=== PATIENT | male | born 1930 | race Caucasian/White ===

== ENCOUNTER → 2017-06-01 | Day surgery (SDC) | payer OTHER ==
[2017-05-19 11:46] VITALS: BMI 24.0
[~2017-06-01] VITALS: Ht 172.7 cm; Wt 72.7 kg
[~2017-06-01] MED LIST: AMLO-110 PO; ASPI81TA28 PO; ATOR-26 PO; ATROPINE SULFATE 0.1 MG/ML 5ML SYR IV PRN; BUPIVACAINE 0.5 % 5 MG/1 ML MPF 30ML VIAL ONE; CEFAZOLIN 2000 MG/60 ML D5W IV SCH; CYAN10005 PO; DEXAMETHASONE SOD INJ 4 MG/ML VIAL ONE; EpHEDrine SULFATE 50MG/5ML SYR ONE; EpHEDrine SULFATE INJ 50 MG/ML AMP IV PRN; FENTANYL CITRATE INJ 50 MCG/1 ML 2 ML VIAL IV PRN; FENTANYL CITRATE INJ 50 MCG/1 ML 2 ML VIAL ONE; GABA-113 PO; HYDROmorphone INJ 1 MG/ML SYR IV PRN; LABETALOL HCL IV 5 MG/ML 20ML IV PRN; LACTATED RINGER'S 1000ML 1,000 ML IV SCH; LIDOCAINE HCL 1% 20 ML VIAL ONE; LIDOCAINE HCL 2% 2 ML VIAL (20MG/ML) ONE; LISI-461 PO; MEPERIDINE HCL 25 MG/ML CARP IV PRN; METO25TA56 PO; MoRPHine SULFATE 4 MG/ML 1 ML CARP\\VIAL IV PRN; NTRGSL/4 UT; OMEG10007 PO; ONDANSETRON INJ 2 MG/ML 2 ML VIAL IV PRN; ONDANSETRON INJ 2 MG/ML 2 ML VIAL ONE; OXYCODONE/ACETAMINOPHEN 5-325 TAB PO PRN; PROPOFOL IV EMULSION 10 MG/ML 20 ML VIAL IV ONE; SODIUM CHLORIDE 0.9% 1000ML 1,000 ML IV SCH; ZNTT/150 PO
[2017-06-01 05:39] VITALS: PULSE 55; TEMP 36.4; O2SAT 98; Ht 172.7 cm; Wt 72.7 kg
--- NOTE | 2017-06-01 07:00 | History & Physical Bridge Note ---
H&P Re-Evaluation Bridge Note: I have examined the patient, reviewed the History & Physical and in the interval since the performance of the History & Physical I have noted the following changes of clinical significance: No changes noted
--- NOTE | 2017-06-01 08:44 | [facility] Post Operative Brief Note ---
Immediate Operative Summary Operative Date Jun 01, 2017. Pre-Operative Diagnosis Recurrent inguinal hernia Post-Operative Diagnosis Recurrent inguinal hernia Procedure(s) Performed Repair of Recurrent Left Inguinal Hernia Surgeon Dr Drake Hull Inspector Surgeon(s) Peggy Rodriguez PA-C Estimated Blood Loss 10cc Findings See dictation Specimens A: Hernia sack Drains None Anesthesia General Complication(s) None Disposition Recovery Room / PACU
--- NOTE | 2017-06-01 08:48 | Discharge Instructions ---
Discharge Instructions Date of Service Jun 01, 2017. Admission Reason for Admission: Left Inguinal Hernia Discharge Discharge Diagnosis / Problem: Rewcurent left inguinal hernia Discharge Goals Goal(s): Decrease discomfort Activity Recommendations Activity Limitations: per Instructions/Follow-up section Lifting Limitations: no more than 10 pounds (for 6 weeks) Shower/Bathe: tomorrow (Shower only) . Instructions / Follow-Up Instructions / Follow-Up ACTIVITY RECOMMENDATIONS: * Walk as much as possible. * No heavy lifting (>10 lbs.) for 2 weeks. SPECIAL CARE INSTRUCTIONS: * Ice to hernia repair site on and off until bedtime tonight. * May shower in 24 hours. Let water run over area and pat dry. * Leave steri strips on for one week. * Call the surgeon's office with any questions or concerns - (ex. temperature higher than 101 degrees F, excessive bleeding or pain). MEDICATIONS: Resume previous medications unless instructed otherwise by your surgeon. * Ibuprofen 600 mg every 6 hours with food * Percocet 1 every 4 hours, as needed for pain FOLLOW UP VISIT: If not already scheduled, please call the office to schedule a two week follow- up appointment. Office number Current Hospital Diet Patient's current hospital diet: Discharge Diet Recommended Diet: Regular Diet Procedures Procedures Performed: Repair of Recurrent Left Inguinal Hernia Pending Studies Studies pending at discharge: no Medical Emergencies . Who to Call and When: Medical Emergencies: If at any time you feel your situation is an emergency, please call 911 immediately. . Non-Emergent Contact Non-Emergency issues call your: Primary Care Provider, Surgeon Call Non-Emergent contact if: your pain is unusual for you, wound has increased redness, wound has increased pain . "Provider Documentation" section prepared by Keyshawn East. . VTE Core Measure Inpt VTE Proph given/why not?: Treatment not indicated
[2017-06-01 09:43] VITALS: BP 125/60; PULSE 72; TEMP 36.5; O2SAT 92
--- NOTE | 2017-06-01 09:52 | Anesthesiology Progress Note ---
Anesthesia Post Op Note Date & Time Jun 01, 2017 at 09:51 Vital Signs Pain Intensity: 0 Vital Signs Past 12 Hours Date Time Temp Pulse Resp B/P (MAP) Pulse Ox O2 Delivery O2 Flow Rate FiO2 06/01/17 09:36 36.1 06/01/17 08:55 36.0 16 120/57 98 Mask 10 06/01/17 05:39 36.4 55 18 98 Room Air Notes Mental Status: alert / awake / arousable, participated in evaluation Pt Amnestic to Procedure: Yes Nausea / Vomiting: adequately controlled Pain: adequately controlled Airway Patency, RR, SpO2: stable & adequate BP & HR: stable & adequate Hydration State: stable & adequate Anesthetic Complications: no major complications apparent
--- NOTE | 2017-06-01 09:59 | OPERATIVE REPORT ---
DATE OF OPERATION: 06/01/2017 PREOPERATIVE DIAGNOSIS: Recurrent left inguinal hernia. POSTOPERATIVE DIAGNOSIS: Recurrent direct and indirect left inguinal hernia. PROCEDURE: Repair of recurrent direct and indirect left inguinal hernia. SURGEON: Dr. Keyshawn East. INTERNET ASSESSOR: Peggy Rodriguez PA-C. FINDINGS: The patient had a moderate sized indirect inguinal hernia. There was also a small direct hernia sac, but the entire floor of the canal was weakened by that defect. The cord structures were normal. The previously placed mesh was located superolateral to the internal ring. There was a lot of scarring of the external oblique to the internal oblique over the area where the mesh was located. TECHNIQUE: The patient was given a general anesthetic and the area was prepped and draped in the usual sterile fashion. An incision was made through the scar from his previous hernia repair and carried down through the subcutaneous tissue. The external oblique was identified. The external ring was identified. The generous tissue of the cord structures was identified. I was able to insert my finger through the external ring and opened the external ring working superolaterally up beyond the internal ring. The cord structures were isolated away from the floor of the canal and the cremaster fibers were opened and the indirect sac was identified. The indirect sac was away from the cord structures to inside the internal ring. The sac was opened. There were no incarcerated contents. The sac was removed and the peritoneal opening was closed with a running 2-0 Vicryl. That then was placed back into its anatomic position just inside the internal ring. There was a small lipoma of the cord that was also removed. At that point, the direct sac was identified. It was away from the floor of the canal and hinojosa of the canal, placed back into its anatomic position and the floor of the canal was oversewn reapproximating the transversalis using a running 0 PDS. A preformed inguinal hernia mesh was then placed in the floor of the canal and in order to do so, I had to separate the external oblique fascia away from the internal oblique and I left the previously placed mesh in place, dissecting the internal and external oblique off its anterior surface and pushing it posteriorly. That allowed me to place the mesh behind the external oblique fascia. It was cut to size and sewn to the anterior surface of the internal oblique medially shelving border of the inguinal ligament laterally, tissue over the pubic bone inferiorly. The legs of the mesh were approximated to each other to create a new internal ring and all the mesh suturing was done with 0 PDS. The external oblique was then closed after placing the cord structures back into their anatomic position. That was closed with a running 2-0 Vicryl. The deep subcutaneous tissue was closed with running 2-0 Vicryl. The superficial subcutaneous tissue was closed with running 3-0 Vicryl. The skin was closed with 4-0 Monocryl in a running subcuticular fashion. The skin was anesthetized with 0.5% Marcaine. The skin was cleansed, dried, and benzoin placed. Steri-Strips applied. The estimated blood loss was 10 mL. Sponge, needle and instrument counts were correct prior to closure. The patient tolerated the surgical procedure without complication and was transferred to recovery. I attest to the content of the Intraoperative Record and any orders documented therein. Any exception s are noted below.
[2017-06-01 10:15] VITALS: BP 122/56; PULSE 72; TEMP 36.6; O2SAT 93
[2017-06-01 10:45] VITALS: BP 150/72; PULSE 83; TEMP 36.7; O2SAT 95
== END | disposition home or self-care (01) ==
LOC: C.ACU 05:11
PROVIDERS: ATTEND Surgery
DX: K40.91 Unilateral inguinal hernia, without obstruction or gangrene, recurrent (principal); I25.10 Atherosclerotic heart disease of native coronary artery without angina pectoris; E78.5 Hyperlipidemia, unspecified; M19.90 Unspecified osteoarthritis, unspecified site; Z86.010 Personal history of colon polyps; I10 Essential (primary) hypertension; N18.3 Chronic kidney disease, stage 3 (moderate); Z95.5 Presence of coronary angioplasty implant and graft; Z79.82 Long term (current) use of aspirin; E78.00 Pure hypercholesterolemia, unspecified; G47.33 Obstructive sleep apnea (adult) (pediatric); K21.9 Gastro-esophageal reflux disease without esophagitis

== ENCOUNTER 2019-08-29 17:01 | Inpatient (IN) ==
[2019-08-29] MEDS ORDERED: ONDANSETRON INJ 2 MG/ML 2 ML VIAL IV STA (18:08)
[2019-08-29] MEDS: SODIUM CHLORIDE 0.9% 1000ML 1,000 ML IV SCH ×2 (18:24→22:36)
[2019-08-29] MEDS ORDERED: ASPIRIN CHEW 324 MG PO STA (18:50)
[2019-08-29 18:59] LABS: Alanine Aminotransferase 34 U/L (12-78); Albumin Level 3.7 gm/dl (3.4-5.0); Blood Urea Nitrogen 28 mg/dl (7-18); Calcium 8.6 mg/dl (8.5-10.1); Carbon Dioxide 22 mmol/L (21-32); Chloride 109 mmol/L (98-107); Est GFR (Non-African American) 29.3; Glucose 134 mg/dl (70-99); Magnesium 1.9 mg/dl (1.8-2.4); Potassium 4.3 mmol/L (3.5-5.1); Sodium 138 mmol/L (136-145)
[2019-08-29 19:05] LABS: Basophils # (auto) 0.01 K/uL (0-0.2); Basophils % (auto) 0.4 %; Hematocrit (blood only) 36.7 % (42-52); Hemoglobin 12.4 g/dL (14.0-18.0); Immature Granulocytes # (auto) 0.01 K/uL (0.00-0.02); Immature Granulocytes % (auto) 0.4 %; Lymphocytes # (auto) 0.33 K/uL (1.2-3.4); Lymphocytes % (auto) 11.9 %; Mean Corpuscular Hemoglobin 34.3 pg (25-34); Mean Corpuscular Hgb Conc 33.8 g/dL (32-36); Mean Corpuscular Volume 101.4 fL (80-100); Mean Platelet Volume 9.5 fL (7.4-10.4); Monocytes # (auto) 0.15 K/uL (0.11-0.59); Monocytes % (auto) 5.4 %; Neutrophils # (auto) 2.27 K/uL (1.4-6.5); Neutrophils % (auto) 81.9 %; Platelet Count 141 K/uL (130-400); RDW Coefficient of Variation 13.3 % (11.5-14.5); RDW Standard Deviation 50.2 fL (36.4-46.3); Red Blood Count 3.62 M/uL (4.7-6.1); White Blood Count 2.77 K/uL (4.8-10.8)
[2019-08-29 19:13] LABS: Albumin Globulin Ratio 1.1 (0.9-2); Alkaline Phosphatase 103 U/L (45-117); Aspartate Aminotransferase 39 U/L (15-37); Bilirubin,Total 1.4 mg/dl (0.2-1); Globulin 3.4 gm/dl (2.5-4.0); Thyroid Stimulating Hormone 0.374 uIu/ml (0.300-4.500); Total Protein 7.1 gm/dl (6.4-8.2); Troponin I 0.228 ng/ml (0-0.045)
[2019-08-29] MEDS ORDERED: HEPARIN SODIUM/DEXTROSE 25,000 UNITS/500 ML BAG IV SCH (19:30)
[2019-08-29 19:46] LABS: INR 1.1 (0.9-1.1); Prothrombin Time 11.5 Seconds (9.0-12.0)
[2019-08-29] MEDS ORDERED: HEPARIN SOD 5,000 UNIT/0.5 ML VIAL ONE (19:50)
--- NOTE | 2019-08-29 19:57 | XRay Report ---
SINGLE VIEW CHEST CLINICAL HISTORY: Generalized weakness. FINDINGS: 2 AP, portable, upright chest radiographs are obtained. No prior studies are available for comparison at the time of dictation. The examination is degraded by portable technique and patient ro tation. The heart is enlarged noting atherosclerotic calcification of the thoracic aorta. The pulmon nils vasculature is noncongested. Emphysematous changes suspected. There is bibasilar scarring/atelect asis. No airspace consolidation or large pleural effusion is identified. Apical scarring is observed. No pneumothorax is seen. The skeletal structures are osteopenic. There are healed right-sided rib fr actures. IMPRESSION: Cardiomegaly and suspect emphysema with no acute cardiopulmonary abnormality identified. Electronically signed by: Lazarus Flaherty M.D. 08/29/2019 7:56 PM
[2019-08-29 20:24] LABS: Partial Thromboplastin Ratio 0.9; Partial Thromboplastin Time 25.6 Seconds (21.0-31.0)
--- NOTE | 2019-08-29 20:42 | History & Physical Report ---
Date of Service August 29, 2019 Assessment & Plan (1) Chest pain: (2) Elevated troponin: This is an 89-year-old male with a PMH of CAD ( s/p stent in 2007), dyslipidemia, hypertension, chronic dysphagia with Schatzki's ring, CKD III/IV and other medical problems listed below who presents with progressive shortness of breath and generalized weakness x2 days. -Progressive SOB x 2 days, Left hand numbness x 2 weeks -H/o CAD with stent to LAD in 2007, presented with left arm numbness -EKG was sinus rhythm with PACs, LVH and T wave inversions in leads I and V3-V6. Initial troponin of 0.228. -Was given aspirin 324 mg and started on IV heparin by ED physician. Continue for now -Monitor on telemetry, trend troponin, 2D echo, repeat EKG in AM (3) Bilateral lower extremity edema: BLE with 2+ edema. 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 Follows with [facility] -Chronic dysphagia, difficulty eating poultry, needs food in small bites -Aspiration precautions (7) HTN (hypertension): Mildly elevated at 141/65 -Continue home amlodipine, lisinopril (8) Inguinal nodule: Chronic pain in left inguinal region following inguinal hernia surgery with revision -Following with general surgery. June 2019 MRI pelvis wo contrast with focal thickening and edema of the anterior abdominal wall in the left inguinal region. This does not have the appearance of a muscle strain or recurrent hernia and is likely postoperative in nature -Consider cardiac clearance prior to any type of surgical intervention (9) HLD (hyperlipidemia): Continue statin (10) B12 deficiency: Continue cyanocobalamin DVT Ppx: IV heparin Code status: FULL per discussion with patient PCP: Mik Dispo: Admitted to PCU. Discharge planning ordered. Patient seen in collaboration with Dr. Shaffer. Please see addendum. History of Present Illness Chief Complaint: Shortness of breath, generalized weakness Primary Care Provider: NO PCP This is an 89-year-old male with a PMH of CAD ( s/p stent in 2007), dyslipidemia, hypertension, chronic dysphagia with Schatzki's ring, CKD III/IV and other medical problems listed below who presents with progressive shortness of breath and generalized weakness x2 days. Patient has felt short of breath for the past few weeks but it is progressed the past few days to where he feels short of breath even at rest. Family notes they can hear him breathing heavily even when sitting in his chair. Also has had decreased appetite and p.o. intake. States that the only food he is really had in the past few days a cereal and Mountain Dew. Had difficulty getting out of his chair today, which prompted family bring him to ED for further evaluation. Denies any recent falls. Currently, patient feels fatigued, short of breath and generally weak. Denies any lightheadedness, visual changes, chest pain or palpitations. No fever, chills, cough or wheezing. Notes that first 3 fingers on left hand have been numb for the past 2 weeks. Has history of CAD with stent to LAD in 2007. During that catheterization, was also noted to have mild nonobstructive disease to proximal left main, PDA, proximal left circumflex and ostial LAD. 2D echo from Dec 2016 with normal left ventricular cavity size, no left ventricular wall motion abnormality, preserved EF of 57% and mildly sclerotic mitral valve leaflets with mild mitral regurg present. In the ED, patient found to be afebrile and hemodynamically stable. Chest x-ray with cardiomegaly and suspected emphysema with no acute cardiopulmonary abnormalities identified. EKG was sinus rhythm with PACs, LVH and T wave inversions in leads I and V3-V6. Initial troponin of 0.228. Was given aspirin 324 mg and started on IV heparin by ED physician. Allergies Allergy/AdvReac Type Severity Reaction Status Date / Time No Known Allergies Allergy Verified 08/29/19 17:57 Home Medications Home Medications Medication Instructions Recorded Confirmed Type amlodipine 2.5 mg PO DAILY 08/29/19 08/29/19 History aspirin [Aspir-81] 81 mg PO DAILY 08/29/19 08/29/19 History atorvastatin 80 mg PO HS 08/29/19 08/29/19 History cyanocobalamin (vitamin B-12) 1,000 mcg PO DAILY 08/29/19 08/29/19 History [Vitamin B-12] gabapentin 300 mg PO HS 08/29/19 08/29/19 History lisinopril 10 mg PO DAILY 08/29/19 08/29/19 History omega 9-dhc-rlg-fish oil [Fish Oil] 1,000 cap PO DAILY 08/29/19 08/29/19 History Past Med/Surg History Medical History BPH (benign prostatic hyperplasia) (Chronic) CKD (chronic kidney disease) stage 4, GFR 15-29 ml/min (Chronic) B12 deficiency (Chronic) Schatzki's ring (Chronic) HTN (hypertension) (Chronic) HLD (hyperlipidemia) (Chronic) CAD (coronary artery disease) (Chronic) Surgical History Status post dilation of esophageal narrowing (Chronic) H/O inguinal hernia repair (Chronic) History of repair of hiatal hernia (Chronic) S/P rotator cuff repair (Chronic) Family History Father Diabetes Mother Pancreatic cancer Social History Preferred Language: Georgian Communication Ability: Effective Slater Apprentice Required: No Beliefs That Will Affect Care: None Current Living Situation: Spouse Other Information That Helps Us Care for You: No Feels Safe at Home: Yes Safety Concerns: Feels Safe At This Time Smoking Status: Never smoker Hx Alcohol Use: No Hx Substance Use: No Review of Systems Review of Systems: At least ten systems reviewed and negative except as noted in the HPI. Physical Exam Physical Exam: General Appearance: WD/WN, vitals as above, elderly male, NAD, sitting up in bed, conversing easily Head: normocephalic, atraumatic Eyes: normal inspection, PERRL, conjunctivae normal, anicteric sclerae ENT: external ear and nose normal, oropharynx normal Neck: trachea midline, no thyromegaly normal visual inspection Respiratory: lungs clear to auscultation, no wheeze, rales, rhonchi. Normal insp/exp effort, no accessory muscle use Cardiovascular: regular rate, rhythm, no murmur appreciated, normal peripheral pulses, 2+ BLE edema. Vessels: no JVD Chest: normal inspection of chest Abdomen/GI: normal bowel sounds, soft, nontender, no hepatosplenomegaly, + small nodularity in LLQ/inguinal region that is tender to palpation Extremities/Musculoskelatal: no cyanosis or clubbing, extremities motor str ength 5/5 Neurologic: PERRL, EOMI, accommodation nl, no face palsy, no dysarthria CN's II-XI intact bilaterally and moves all extremities Psychiatric: A+Ox3, euthymic affect Skin: no rashes, normal color, warm/dry Results & Data Vital Signs (Past 12 Hours) Vital Signs Temp Pulse Resp BP Pulse Ox 08/29/19 20:31 74 22 129/57 L 94 08/29/19 20:00 74 22 118/63 95 08/29/19 19:30 74 20 127/63 96 08/29/19 19:00 68 18 131/60 95 08/29/19 18:58 73 19 131/60 96 08/29/19 17:10 36.9 C 77 18 160/66 H 96 Laboratory Results Short CBC 08/29/19 08/29/19 08/29/19 Range/Units 18:10 18:10 18:10 WBC 2.77 L (4.8-10.8) K/uL RBC 3.62 L (4.7-6.1) M/uL Hgb 12.4 L (14.0-18.0) g/dL Hct 36.7 L (42-52) % MCV 101.4 H (80-100) fL MCH 34.3 H (25-34) pg MCHC 33.8 (32-36) g/dL RDW Std Deviation 50.2 H (36.4-46.3) fL RDW Coeff of Satish 13.3 (11.5-14.5) % Plt Count 141 (130-400) K/uL MPV 9.5 (7.4-10.4) fL Immature Gran % (Auto) 0.4 % Neut % (Auto) 81.9 % Lymph % (Auto) 11.9 % Gu[place]upe % (Auto) 5.4 % Eos % (Auto) 0.0 % Baso % (Auto) 0.4 % Immature Gran # (Auto) 0.01 (0.00-0.02) K/uL Neut # (Auto) 2.27 (1.4-6.5) K/uL Lymph # (Auto) 0.33 L (1.2-3.4) K/uL [place] # (Auto) 0.15 (0.11-0.59) K/uL Eos # (Auto) 0.00 (0-0.5) K/uL Baso # (Auto) 0.01 (0-0.2) K/uL PT 11.5 (9.0-12.0) Seconds INR 1.1 (0.9-1.1) APTT (21.0-31.0) Seconds PTT Ratio Sodium 138 (136-145) mmol/L Potassium 4.3 (3.5-5.1) mmol/L Chloride 109 H (98-107) mmol/L Carbon Dioxide 22 (21-32) mmol/L Anion Gap 7.0 (3-11) BUN 28 H (7-18) mg/dl Creatinine 1.98 H (0.6-1.4) mg/dl Est Cr Clr Drug Dosing Not Reportable Est GFR ( Amer) 34.0 Est GFR (Non-Af Amer) 29.3 BUN/Creatinine Ratio 14.0 (10-20) Glucose 134 H (70-99) mg/dl Calcium 8.6 (8.5-10.1) mg/dl Magnesium 1.9 (1.8-2.4) mg/dl Total Bilirubin 1.4 H (0.2-1) mg/dl AST 39 H (15-37) U/L ALT 34 (12-78) U/L Alkaline Phosphatase 103 (45-117) U/L POC Troponin I (0-0.045) ng/ml Troponin I 0.228 H* (0-0.045) ng/ml Total Protein 7.1 (6.4-8.2) gm/dl Albumin 3.7 (3.4-5.0) gm/dl Globulin 3.4 (2.5-4.0) gm/dl Albumin/Globulin Ratio 1.1 (0.9-2) TSH 0.374 (0.300-4.500) uIu/ml 08/29/19 08/29/19 Range/Units 18:10 18:21 WBC (4.8-10.8) K/uL RBC (4.7-6.1) M/uL Hgb (14.0-18.0) g/dL Hct (42-52) % MCV (80-100) fL MCH (25-34) pg MCHC (32-36) g/dL RDW Std Deviation (36.4-46.3) fL RDW Coeff of Satish (11.5-14.5) % Plt Count (130-400) K/uL MPV (7.4-10.4) fL Immature Gran % (Auto) % Neut % (Auto) % Lymph % (Auto) % [place] % (Auto) % Eos % (Auto) % Baso % (Auto) % Immature Gran # (Auto) (0.00-0.02) K/uL Neut # (Auto) (1.4-6.5) K/uL Lymph # (Auto) (1.2-3.4) K/uL [place] # (Auto) (0.11-0.59) K/uL Eos # (Auto) (0-0.5) K/uL Baso # (Auto) (0-0.2) K/uL PT (9.0-12.0) Seconds INR (0.9-1.1) APTT 25.6 (21.0-31.0) Seconds PTT Ratio 0.9 Sodium (136-145) mmol/L Potassium (3.5-5.1) mmol/L Chloride (98-107) mmol/L Carbon Dioxide (21-32) mmol/L Anion Gap (3-11) BUN (7-18) mg/dl Creatinine (0.6-1.4) mg/dl Est Cr Clr Drug Dosing Est GFR ( Amer) Est GFR (Non-Af Amer) BUN/Creatinine Ratio (10-20) Glucose (70-99) mg/dl Calcium (8.5-10.1) mg/dl Magnesium (1.8-2.4) mg/dl Total Bilirubin (0.2-1) mg/dl AST (15-37) U/L ALT (12-78) U/L Alkaline Phosphatase (45-117) U/L POC Troponin I 0.17 H (0-0.045) ng/ml Troponin I (0-0.045) ng/ml Total Protein (6.4-8.2) gm/dl Albumin (3.4-5.0) gm/dl Globulin (2.5-4.0) gm/dl Albumin/Globulin Ratio (0.9-2) TSH (0.300-4.500) uIu/ml BMP 08/29/19 18:10 Sodium 138 Potassium 4.3 Chloride 109 H Carbon Dioxide 22 BUN 28 H Creatinine 1.98 H Glucose 134 H Calcium 8.6 Cardiac Enzymes 08/29/19 Range/Units 18:10 Troponin I 0.228 H* (0-0.045) ng/ml Liver Function 08/29/19 Range/Units 18:10 Total Bilirubin 1.4 H (0.2-1) mg/dl AST 39 H (15-37) U/L ALT 34 (12-78) U/L Alkaline Phosphatase 103 (45-117) U/L Albumin 3.7 (3.4-5.0) gm/dl Diagnostic Findings CXR: IMPRESSION: Cardiomegaly and suspect emphysema with no acute cardiopulmonary abnormality identified. ECG Rhythm: sinus rhythm Findings: + PAC and + T-wave inversion (Anterolateral) Code Status & VTE Plan VTE Prophylaxis Plan VTE Prophylaxis will be ordered: Yes Supervising Physician Co-Signing Physician Notes HISTORY: Record reviewed. Patient interviewed and examined. Care coordinated with Betsy Adkins PA-C. Please refer to her documentation for complete history. Briefly, 89-year-old male with history of coronary artery disease, status post PCI of LAD with drug-eluting stent in 2007. Presented to ED with 2 days of progressive dyspnea and generalized malaise. No chest pain, chest pressure, palpitations. Has some dependent edema which may be somewhat worse than baseline. No fever. History of dysphagia attributed to Schatzki's ring, status post dilatation in past. Chronic and perhaps worsening dysphagia to solids. Sometimes coughs when he eats or drinks. He has been having some left lower quadrant tenderness for several months attributed to postsurgical changes from previous hernia repair. Followed by Dr. East and is scheduled to see him in clinic this . EXAM: General- no distress Lungs- clear to auscultation; no respiratory distress Cardiovascular- RRR; no murmur; no gallop; no JVD; 1-2+ pretibial edema Abdomen- + bowel sounds, soft, nontender; postsurgical changes left inguinal fold; tenderness LLQ ? associated with underlying mesh; no inguinal hernia Extremities- no cyanosis; no calf tenderness Neuro- alert, oriented Skin- warm & dry DATA: Hemoglobin 12.4, white count 2770, platelet count 141. MCV 101. PT, INR, PTT normal. Sodium 138, potassium 4.3, chloride 109, CO2 22, BUN 28, creatinine 1.98, random glucose 134. Total bilirubin 1.4, AST 39, ALT 34, alkaline phosphatase 103. Troponin I = 0.228. TSH = 0.374. Other lab studies as noted. Chest x-ray reviewed by the undersigned and formally interpreted by Radiology. Cardiomegaly and calcification of thoracic aorta noted. No infiltrates, effusions, CHF. EKG performed at 1801 reviewed and showed normal sinus rhythm at 80/minute, LVH, biphasic and inverted T waves in lateral leads. No previous EKGs available for comparison at time of admission. ASSESSMENT AND PLAN: Patient with known ischemic heart disease experiencing progressive dyspnea over the past couple days without chest pain. EKG shows lateral T wave inversions. No tracings available for comparison. Serum troponin is elevated. Uncertain whether or not patient is having an acute coronary syndrome, but will treat for same pending further evaluation and cardiology input. Patient received aspirin and intravenous heparin in the ED. Start metoprolol 25 mg twice daily. Check serial troponins, lipid profile, echocardiogram. Consult Cardiology. Low clinical suspicion for pulmonary embolism. O2 saturations 94 to 96% on room air. No pleuritic chest pain. He does have worsening dependent edema. Check venous duplex to rule out DVT. History of dysphagia attributed to Schatzki's ring. Status post dilatation a couple years ago. Now with recurrent/worsening dysphagia to solids. Sometimes has cough associated with eating. Deserves further evaluation once cardiac status addressed. Consider barium swallow and BU[employer] FOR[employer] MACHINE evaluation before discharge. Macrocytosis previously noted and evaluated. Found to have B12 deficiency. Patient has leukopenia and relatively low platelet count. CBC was done in clinic on 05/26/2019. At that time, white count was 6570 and platelet count was 242,000. Consider infectious illness, including possibility of tick borne illness. Follow CBC. Check anaplasmosis PCR and Lyme screen. Management of chronic left lower quadrant postsurgical pain per Dr. East. Please refer to TROY Adkins's documentation for discussion of other issues.
[2019-08-29] MEDS ORDERED: NITROGLYCERIN SL 0.4 MG/TAB TAB SL PRN (20:52)
[2019-08-29] MEDS ORDERED: ONDANSETRON INJ 2 MG/ML 2 ML VIAL IV PRN (20:52)
[2019-08-29] MEDS ORDERED: Nursing to Pharmacy Communication ONE (21:53)
[2019-08-29] MEDS ORDERED: METOPROLOL TARTRATE 25 MG TAB PO SCH (22:15)
--- NOTE | 2019-08-29 22:32 | Ultrasound Report ---
ULTRASOUND BILATERAL LOWER EXTREMITY VENOUS CLINICAL HISTORY: Lower extremity edema. COMPARISON STUDY: No priors. TECHNIQUE: Real-time, grayscale, and color Doppler sonography of the deep veins of the right and left lower extremity was performed from the inguinal crease to the calf. Compression and augmentation wer e utilized. FINDINGS: There is no sonographic evidence of deep venous thrombosis identified in the right or left lower extremity. The common femoral, superficial femoral, and popliteal veins are patent and normally compressible bilaterally. The greater saphenous vein and the profunda femoris vein at the junction w ith the common femoral vein are clear in both legs. The visualized calf veins are patent bilaterally. A small popliteal cyst on the right measures 2.6 x 0.8 x 1.4 cm. IMPRESSION: 1. There is no sonographic evidence of deep venous thrombosis identified in the right or left lower e xtremity. 2. Small right-sided Monroe's cyst. Electronically signed by: Lazarus Flaherty M.D. 08/29/2019 10:30 PM
[2019-08-29] MEDS: ATORVASTATIN 40 MG TAB PO SCH (22:33)
[2019-08-29] MEDS: FAMOTIDINE 20 MG TAB PO SCH (22:33)
[2019-08-29] MEDS: GABAPENTIN 300 MG CAP PO SCH (22:33)
[2019-08-29] MEDS: ACETAMINOPHEN 325 MG TAB PO PRN (23:26)
[2019-08-29 23:42] LABS: Appearance Urine Cloudy (Clear); Bacteria Urine Automated Negative (Negative); Bilirubin Urine Negative (Negative); Blood Urine Trace (Negative); Color Urine Dark Yellow; Epithelial Cell Urine Auto 20-30 /lpf (0-5); Glucose Urine UA Negative (Negative); Ketones Urine Negative (Negative); Leukocyte Esterase Urine Negative (Negative); Nitrite Urine Negative (Negative); Protein Urine 2+ (Negative); Specific Gravity Urine 1.022 (1.000-1.030); Urobilinogen Urine Negative (Negative)
[2019-08-30 00:02] LABS: Mucus Urine Present (None Prsent)
[2019-08-30 00:20] LABS: Influenza A virus by PCR Neg for Influ A (Neg); Influenza B virus by PCR Neg for Influ B (Neg)
--- NOTE | 2019-08-30 01:26 | Emergency Department Note ---
Entered by Zuleika Rosario acting as a scribe for History of Present Illness General Chief complaint: Weakness Stated complaint: WEAKNESS, NOT EATING History of Present Illness Provider complaint: weakness Onset (ago): day(s) 1 Pain Consistency: + other (episode) Quality: + other (weakness) Associated symptoms: + denies other symptoms (diarrhea, urinary symptoms, hematochezia, abdominal pain), + shortness of breath and + other (chopping wood outside all day, not eating or drinking, left inguinal hernia which is exacerbated by eating, choking on food more often); no headaches and no nausea/vomiting Treatments prior to arrival: none The patient is an 89 year old male who presents to the ED with complaints of an episode of weakness that started 1 day ago. Per daughter, the patient has been working outside all day chopping wood without eating or drinking sufficiently. Per daughter, the patient has also been more short of breath recently. The patient states that he had a left inguinal hernia repair which is still giving him pain. The patient states that his hernia causes him more pain after eating. Per daughter, the patient has a history of a narrowing esophagus and has been choking more recently. The patient denies headache, vomiting, diarrhea, urinary symptoms, hematochezia and abdominal pain. The patient denies receiving any treatments prior to arrival. Home Medications Home Medications Medication Instructions Recorded Confirmed Type amlodipine 2.5 mg PO DAILY 08/29/19 08/29/19 History aspirin [Aspir-81] 81 mg PO DAILY 08/29/19 08/29/19 History atorvastatin 80 mg PO HS 08/29/19 08/29/19 History cyanocobalamin (vitamin B-12) 1,000 mcg PO DAILY 08/29/19 08/29/19 History [Vitamin B-12] gabapentin 300 mg PO HS 08/29/19 08/29/19 History lisinopril 10 mg PO DAILY 08/29/19 08/29/19 History omega 1-bvx-zbg-fish oil [Fish Oil] 1,000 cap PO DAILY 08/29/19 08/29/19 History Allergies Allergy/AdvReac Type Severity Reaction Status Date / Time No Known Allergies Allergy Verified 08/29/19 17:57 Past Med/Surg History Medical History BPH (benign prostatic hyperplasia) (Chronic) CKD (chronic kidney disease) stage 4, GFR 15-29 ml/min (Chronic) B12 deficiency (Chronic) Schatzki's ring (Chronic) HTN (hypertension) (Chronic) HLD (hyperlipidemia) (Chronic) CAD (coronary artery disease) (Chronic) Surgical History Status post dilation of esophageal narrowing (Chronic) H/O inguinal hernia repair (Chronic) History of repair of hiatal hernia (Chronic) S/P rotator cuff repair (Chronic) Family History Father Diabetes Mother Pancreatic cancer Social History Preferred Language: Turkmen Communication Ability: Effective Bus Escort Required: No Beliefs That Will Affect Care: None marital status: Current Living Situation: Spouse Other Information That Helps Us Care for You: No Feels Safe at Home: Yes Safety Concerns: Feels Safe At This Time Smoking Status: Never smoker Hx Alcohol Use: No Hx Substance Use: No Review of Systems See HPI for pertinent positives & negatives. and A total of 10 systems reviewed and were otherwise negative Physical Exam Vital Signs Vital Signs - 24 hr 08/29/19 17:10 08/29/19 18:08 08/29/19 18:21 Temperature 36.9 C Temperature Source Oral Sepsis Recent Fever Within 48 Hours No Sepsis New/Unexplained Change in Mental Status No Sepsis Action Taken by Nursing No Action Required Pulse Rate - Lying 70 Pulse Rate - Sitting 83 Pulse Rate - Standing 81 Pulse Rate 77 Respiratory Rate 18 Blood Pressure - Lying 125/65 Blood Pressure - Sitting 142/64 H Blood Pressure- Standing 131/64 Blood Pressure 160/66 H Blood Pressure Mean 97 Blood Pressure Position Sitting Pulse Oximetry 96 Oxygen Delivery Method Room Air Room Air 08/29/19 18:58 08/29/19 19:00 08/29/19 19:30 Temperature Temperature Source Sepsis Recent Fever Within 48 Hours Sepsis New/Unexplained Change in Mental Status Sepsis Action Taken by Nursing Pulse Rate - Lying Pulse Rate - Sitting Pulse Rate - Standing Pulse Rate 73 68 74 Respiratory Rate 19 18 20 Blood Pressure - Lying Blood Pressure - Sitting Blood Pressure- Standing Blood Pressure 131/60 131/60 127/63 Blood Pressure Mean 83 83 84 Blood Pressure Position Pulse Oximetry 96 95 96 Oxygen Delivery Method Room Air Room Air Room Air Vital signs reviewed. General: Well-appearing 89 year old male, in no significant distress. HEENT: No scleral icterus, PERRLA, neck supple. Atraumatic. Cardiovascular: Regular rate and rhythm, systolic injection murmur. Pulmonary: Clear to auscultation bilaterally, normal work of breathing. Abdomen: Soft, nontender, nondistended, positive bowel sounds. Musculoskeletal: Atraumatic, no peripheral edema. Neurologic: Patient awake alert and oriented x 3, full strength in all 4 extremities. Cranial nerves 2 through 12 grossly intact. Skin: Warm, dry, no rash Psych: Flat affect Course 180: Past medical records reviewed. The patient was evaluated in room C07. A complete history and physical exam was performed. 1940: I discussed the patient's case with Dr. Harsha Bermudez. He will evaluate the patient for further management. Consultations Consultation #1: I discussed the patient's case with Dr. Harsha Bermudez. He will evaluate the patient for further management. Time: 19:41 Administered Medications Acetaminophen (Tylenol) 650 mg PO Q4H PRN PRN Reason: Pain or Fever Stop: 09/28/19 20:51 Last Admin: 08/31/19 04:14 Dose: 650 mg Documented by: [id number] Admin: 08/30/19 19:32 Dose: 650 mg Documented by: [id number] Admin: 08/30/19 11:57 Dose: 650 mg Documented by: [id number] Admin: 08/29/19 23:26 Dose: 650 mg Documented by: [id number] Amlodipine Besylate (Norvasc) 2.5 mg PO DAILY K[facility]ACE Stop: 09/29/19 08:59 Last Admin: 08/31/19 08:11 Dose: 2.5 mg Documented by: [id number] Admin: 08/30/19 07:37 Dose: 2.5 mg Documented by: [id number] Aspirin (Ecotrin Ectab) 81 mg PO DAILY K[facility]ACE Stop: 09/29/19 08:59 Last Admin: 08/31/19 08:10 Dose: 81 mg Documented by: [id number] Admin: 08/30/19 07:36 Dose: 81 mg Documented by: [id number] Atorvastatin Calcium (Lipitor) 80 mg PO HS K[facility]ACE Stop: 09/28/19 22:09 Last Admin: 08/30/19 19:33 Dose: 80 mg Documented by: [id number] Admin: 08/29/19 22:33 Dose: 80 mg Documented by: [id number] Cyanocobalamin (Vitamin B-12) 1,000 mcg PO DAILY K[facility]ACE Stop: 09/29/19 08:59 Last Admin: 08/31/19 08:11 Dose: 1,000 mcg Documented by: [id number] Admin: 08/30/19 07:36 Dose: 1,000 mcg Documented by: [id number] Famotidine (Pepcid) 20 mg PO BID K[facility] Stop: 09/28/19 22:14 Last Admin: 08/31/19 08:11 Dose: 20 mg Documented by: [id number] Admin: 08/30/19 19:37 Dose: 20 mg Documented by: [id number] Admin: 08/30/19 07:36 Dose: 20 mg Documented by: [id number] Admin: 08/29/19 22:33 Dose: 20 mg Documented by: [id number] Gabapentin (Neurontin) 300 mg PO HS [facility] Stop: 09/28/19 20:59 Last Admin: 08/30/19 19:34 Dose: 300 mg Documented by: [id number] Admin: 08/29/19 22:33 Dose: 300 mg Documented by: [id number] Lisinopril (Zestril) 10 mg PO DAILY [facility] Stop: 09/29/19 08:59 Last Admin: 08/31/19 08:11 Dose: 10 mg Documented by: [id number] Admin: 08/30/19 07:36 Dose: 10 mg Documented by: [id number] Metoprolol Tartrate (Lopressor) 12.5 mg PO BID [facility] Stop: 09/29/19 08:59 Last Admin: 08/31/19 08:10 Dose: 12.5 mg Documented by: [id number] Admin: 08/30/19 19:35 Dose: 12.5 mg Documented by: [id number] Admin: 08/30/19 07:37 Dose: 12.5 mg Documented by: [id number] Discontinued Medications Aspirin (Aspirin) 324 mg PO NOW STA Stop: 08/29/19 18:51 Last Admin: 08/29/19 18:57 Dose: 324 mg Documented by: [id number] Heparin Sodium (Porcine) (Heparin Sodium (Porcine)) Confirm Administered Dose 5,000 units .ROUTE .STK-MED ONE Stop: 08/29/19 19:51 Last Admin: 08/29/19 19:55 Dose: 5,000 units Documented by: [id number] Cosigned by: [id number] Heparin Sodium/Dextrose () 1 ea IV NOW STA; Protocol Stop: 08/29/19 19:29 Last Admin: 08/29/19 21:52 Dose: 1 ea Documented by: [id number] Sodium Chloride (Nss 1000ml) 1,000 mls @ 125 mls/hr IV .Q8H K[facility]ACE Stop: 09/28/19 18:14 Last Infusion: 08/30/19 23:20 Dose: 0 mls/hr Documented by: [id number] Admin: 08/30/19 21:23 Dose: 125 mls/hr Documented by: [id number] Infusion: 08/30/19 21:23 Dose: 125 mls/hr Documented by: [id number] Admin: 08/30/19 13:30 Dose: 125 mls/hr Documented by: [id number] Infusion: 08/30/19 13:30 Dose: 125 mls/hr Documented by: [id number] Admin: 08/30/19 06:25 Dose: 125 mls/hr Documented by: [id number] Infusion: 08/30/19 06:25 Dose: 125 mls/hr Documented by: [id number] Admin: 08/29/19 22:36 Dose: 125 mls/hr Documented by: [id number] Infusion: 08/29/19 20:45 Dose: 0 mls/hr Documented by: [id number] Admin: 08/29/19 18:24 Dose: 125 mls/hr Documented by: [id number] Heparin Sodium/Dextrose (Heparin Sodium/Dextrose) 25,000 units in 500 mls @ 0 mls/hr IV .Q0M KANDACE; Protocol Stop: 09/28/19 19:29 Last Titration: 08/30/19 13:30 Dose: 0 units/hr, 0 mls/hr Documented by: [id number] Cosigned by: [id number] Titration: 08/30/19 08:09 Dose: 1,000 units/hr, 20 mls/hr Documented by: [id number] Cosigned by: [id number] Titration: 08/30/19 07:14 Dose: 0 units/hr, 0 mls/hr Documented by: [id number] Cosigned by: [id number] Titration: 08/30/19 03:48 Dose: 0 units/hr, 0 mls/hr Documented by: [id number] Cosigned by: [id number] Admin: 08/29/19 19:56 Dose: 1,200 units/hr, 24 mls/hr Documented by: [id number] Cosigned by: [id number] Magnesium Sulfate/Dextrose (Magnesium Sulfate / D5w) 1 gm in 100 mls @ 100 mls/hr IV ONE ONE Stop: 08/30/19 05:14 Last Infusion: 08/30/19 05:33 Dose: 0 mls/hr Documented by: [id number] Admin: 08/30/19 04:29 Dose: 100 mls/hr Documented by: [id number] Metoprolol Tartrate (Lopressor) 25 mg PO BID [facility] Stop: 09/28/19 22:14 Last Admin: 08/29/19 22:33 Dose: 25 mg Documented by: [id number] Ondansetron HCl (Zofran) 4 mg IV NOW STA Stop: 08/29/19 18:09 Last Admin: 08/29/19 18:24 Dose: 4 mg Documented by: [id number] Medical Decision Making Differential Diagnosis Differential diagnosis: Etiologies such as metabolic, infection, hypo/hyperglycemia, electrolyte abnormalities, cardiac sources, intracerebral event, toxicologic, neurologic, as well as others were entertained. Medical Records Attestation: I reviewed the patient's medical records. On 02/17/2019, the patient was seen by a shipping hand. No previous images of the EKG are available but the read was available. The EKG showed marked T-wave abnormalities, consider lateral ischemia. On 07/12/2019, the patient had an MRI of his abdomen. The MRI showed focal thickening and edema of anterior abdominal wall and left inguinal region, likely post operative. Home Medications Current Medication List: was personally reviewed by me Laboratory Data Attestation: I reviewed the patient's lab results. Result diagrams: 08/31/19 06:40 08/31/19 06:40 Lab Results 08/29/19 08/29/19 08/29/19 Range/Units 18:10 18:10 18:10 WBC 2.77 L (4.8-10.8) K/uL RBC 3.62 L (4.7-6.1) M/uL Hgb 12.4 L (14.0-18.0) g/dL Hct 36.7 L (42-52) % MCV 101.4 H (80-100) fL MCH 34.3 H (25-34) pg MCHC 33.8 (32-36) g/dL RDW Std Deviation 50.2 H (36.4-46.3) fL RDW Coeff of Satish 13.3 (11.5-14.5) % Plt Count 141 (130-400) K/uL MPV 9.5 (7.4-10.4) fL Immature Gran % (Auto) 0.4 % Neut % (Auto) 81.9 % Lymph % (Auto) 11.9 % [place] % (Auto) 5.4 % Eos % (Auto) 0.0 % Baso % (Auto) 0.4 % Immature Gran # (Auto) 0.01 (0.00-0.02) K/uL Neut # (Auto) 2.27 (1.4-6.5) K/uL Lymph # (Auto) 0.33 L (1.2-3.4) K/uL [place] # (Auto) 0.15 (0.11-0.59) K/uL Eos # (Auto) 0.00 (0-0.5) K/uL Baso # (Auto) 0.01 (0-0.2) K/uL PT 11.5 (9.0-12.0) Seconds INR 1.1 (0.9-1.1) APTT (21.0-31.0) Seconds PTT Ratio Sodium 138 (136-145) mmol/L Potassium 4.3 (3.5-5.1) mmol/L Chloride 109 H (98-107) mmol/L Carbon Dioxide 22 (21-32) mmol/L Anion Gap 7.0 (3-11) BUN 28 H (7-18) mg/dl Creatinine 1.98 H (0.6-1.4) mg/dl Est Cr Clr Drug Dosing Not Reportable Est GFR ( Amer) 34.0 Est GFR (Non-Af Amer) 29.3 BUN/Creatinine Ratio 14.0 (10-20) Glucose 134 H (70-99) mg/dl Calcium 8.6 (8.5-10.1) mg/dl Magnesium 1.9 (1.8-2.4) mg/dl Total Bilirubin 1.4 H (0.2-1) mg/dl AST 39 H (15-37) U/L ALT 34 (12-78) U/L Alkaline Phosphatase 103 (45-117) U/L POC Troponin I (0-0.045) ng/ml Troponin I 0.228 H* (0-0.045) ng/ml Total Protein 7.1 (6.4-8.2) gm/dl Albumin 3.7 (3.4-5.0) gm/dl Globulin 3.4 (2.5-4.0) gm/dl Albumin/Globulin Ratio 1.1 (0.9-2) TSH 0.374 (0.300-4.500) uIu/ml 08/29/19 08/29/19 Range/Units 18:10 18:21 WBC (4.8-10.8) K/uL RBC (4.7-6.1) M/uL Hgb (14.0-18.0) g/dL Hct (42-52) % MCV (80-100) fL MCH (25-34) pg MCHC (32-36) g/dL RDW Std Deviation (36.4-46.3) fL RDW Coeff of Satish (11.5-14.5) % Plt Count (130-400) K/uL MPV (7.4-10.4) fL Immature Gran % (Auto) % Neut % (Auto) % Lymph % (Auto) % [place] % (Auto) % Eos % (Auto) % Baso % (Auto) % Immature Gran # (Auto) (0.00-0.02) K/uL Neut # (Auto) (1.4-6.5) K/uL Lymph # (Auto) (1.2-3.4) K/uL [place] # (Auto) (0.11-0.59) K/uL Eos # (Auto) (0-0.5) K/uL Baso # (Auto) (0-0.2) K/uL PT (9.0-12.0) Seconds INR (0.9-1.1) APTT 25.6 (21.0-31.0) Seconds PTT Ratio 0.9 Sodium (136-145) mmol/L Potassium (3.5-5.1) mmol/L Chloride (98-107) mmol/L Carbon Dioxide (21-32) mmol/L Anion Gap (3-11) BUN (7-18) mg/dl Creatinine (0.6-1.4) mg/dl Est Cr Clr Drug Dosing Est GFR ( Amer) Est GFR (Non-Af Amer) BUN/Creatinine Ratio (10-20) Glucose (70-99) mg/dl Calcium (8.5-10.1) mg/dl Magnesium (1.8-2.4) mg/dl Total Bilirubin (0.2-1) mg/dl AST (15-37) U/L ALT (12-78) U/L Alkaline Phosphatase (45-117) U/L POC Troponin I 0.17 H (0-0.045) ng/ml Troponin I (0-0.045) ng/ml Total Protein (6.4-8.2) gm/dl Albumin (3.4-5.0) gm/dl Globulin (2.5-4.0) gm/dl Albumin/Globulin Ratio (0.9-2) TSH (0.300-4.500) uIu/ml Imaging Data Radiologist's Impression: Radiology results as stated below per my review and the radiologist's interpretation: SINGLE VIEW CHEST CLINICAL HISTORY: Generalized weakness. FINDINGS: 2 AP, portable, upright chest radiographs are obtained. No prior studies are available for comparison at the time of dictation. The examination is degraded by portable technique and patient rotation. The heart is enlarged noting atherosclerotic calcification of the thoracic aorta. The pulmonary vasculature is noncongested. Emphysematous changes suspected. There is bibasilar scarring/atelectasis. No airspace consolidation or large pleural effusion is identified. Apical scarring is observed. No pneumothorax is seen. The skeletal structures are osteopenic. There are healed right-sided rib fractures. IMPRESSION: Cardiomegaly and suspect emphysema with no acute cardiopulmonary abnormality identified. Electronically signed by: Lazarus Flaherty M.D. 08/29/2019 7:56 PM ECG Data Attestation: I personally reviewed and interpreted this ECG as follows: Indication: weakness Rate (beats per minute): 79 Rhythm: sinus rhythm Findings: + other (LVH, T-wave flattening in inferior leads), + PAC and + T-wave inversion (in anterolateral leads) Comparison ECG Date: no prior available Blood Pressure Blood Pressure Findings: Elevated blood pressure Blood Pressure Disposition: further management by hospitalist JOHN Narrative This pt was evaluated and appeared to be in no distress. IV access was obtained and lab work was drawn. EKG was performed and reveals T wave abnl. CXR is largely negative. UA is contaminated and likely negative, lab work reveals an elevated trop. Pt has been experiencing JARAMILLO, but no clear CP. Pt was started on a heparin drip and given po aspirin. [facility]. Impression & Plan Non-STEMI (non-ST elevated myocardial infarction) Discharge Plan Visit Data *Final* Discharge Date/Time: 08/29/19 20:32 Chief Complaint: Weakness Stated Complaint: WEAKNESS, NOT EATING ED Provider: Era Almanza Discharge Problem: Non-STEMI (non-ST elevated myocardial infarction) Patient Disposition: Admitted As Inpatient Discharge Instructions Interventions: ED Discharge Assessment Last Done: 08/29/19 20:32 The scribe's documentation has been prepared under my direction and personally reviewed by me in its entirety. I confirm that the note above accurately reflects all work, treatment, procedures, and medical decision making performed by me.
[2019-08-30 02:06] LABS: Hematocrit (blood only) 30.5 % (42-52); Hemoglobin 10.4 g/dL (14.0-18.0); Mean Corpuscular Hemoglobin 34.3 pg (25-34); Mean Corpuscular Hgb Conc 34.1 g/dL (32-36); Mean Corpuscular Volume 100.7 fL (80-100); Mean Platelet Volume 9.3 fL (7.4-10.4); Platelet Count 112 K/uL (130-400); RDW Coefficient of Variation 13.4 % (11.5-14.5); RDW Standard Deviation 49.3 fL (36.4-46.3); Red Blood Count 3.03 M/uL (4.7-6.1); White Blood Count 3.29 K/uL (4.8-10.8)
[2019-08-30 02:37] LABS: BUN Creatinine Ratio 15.2 (10-20); Creatinine Clr Calc Pharmacy 21.6 ml/min; Est GFR (African American) 32.4; Est GFR (Non-African American) 27.9; Potassium 4.4 mmol/L (3.5-5.1)
[2019-08-30 02:40] LABS: Troponin I 0.245 ng/ml (0-0.045)
--- NOTE | 2019-08-30 03:28 | Hospitalist Progress Note ---
Date of Service August 30, 2019 Subjective Made aware by RN of episodic bradycardia cardiac rate 40s. Patient sleepy as per RN. AP Episodic bradycardia New beta-letty Rx for possible ACS Decrease beta-letty dose for now. Will relay to AM provider. Results & Data Vital Signs (Past 12 Hours) Vital Signs Temp Pulse Pulse Resp BP BP BP 08/30/19 03:24 37.2 C 56 L 17 116/59 L 08/29/19 23:11 38.0 C H 79 19 137/69 08/29/19 21:58 74 08/29/19 20:52 36.7 C 69 18 149/65 H 08/29/19 20:31 74 22 129/57 L 08/29/19 20:00 74 22 118/63 08/29/19 19:30 74 20 127/63 08/29/19 19:00 68 18 131/60 08/29/19 18:58 73 19 131/60 08/29/19 17:10 36.9 C 77 18 160/66 H Pulse Ox 08/30/19 03:24 96 08/29/19 23:11 92 08/29/19 21:58 08/29/19 20:52 95 08/29/19 20:31 94 08/29/19 20:00 95 08/29/19 19:30 96 08/29/19 19:00 95 08/29/19 18:58 96 08/29/19 17:10 96
[2019-08-30 03:43] LABS: Partial Thromboplastin Ratio > 5.1
[2019-08-30 03:45] LABS: Partial Thromboplastin Time > 139.0 Seconds (21.0-31.0)
[2019-08-30] MEDS ORDERED: MAGNESIUM SULFATE / D5W 1 GM/100 ML BAG IV ONE (04:15)
[2019-08-30 05:59] LABS: Partial Thromboplastin Ratio 4.6
[2019-08-30 06:03] LABS: Partial Thromboplastin Time 125.2 Seconds (21.0-31.0)
[2019-08-30] MEDS: SODIUM CHLORIDE 0.9% 1000ML 1,000 ML IV SCH ×3 (06:25→21:23)
[2019-08-30] MEDS: ASPIRIN 81 MG ECTAB PO SCH (07:36)
[2019-08-30] MEDS: lisinopriL 10 MG TAB PO SCH (07:36)
[2019-08-30] MEDS: CYANOCOBALAMIN 500 MCG TABLET (VITAMIN B-12) PO SCH (07:36)
[2019-08-30] MEDS: FAMOTIDINE 20 MG TAB PO SCH ×2 (07:36→19:37)
[2019-08-30] MEDS: AMLODIPINE BESYLATE 5 MG TAB PO SCH (07:37)
[2019-08-30] MEDS: METOPROLOL TARTRATE 25 MG TAB PO SCH ×2 (07:37→19:35)
[2019-08-30 07:56] LABS: Partial Thromboplastin Ratio 2.4
[2019-08-30 08:04] LABS: Partial Thromboplastin Time 66.1 Seconds (21.0-31.0)
[2019-08-30] MEDS ORDERED: ATORVASTATIN 40 MG TAB PO SCH (09:00)
[2019-08-30] MEDS: ACETAMINOPHEN 325 MG TAB PO PRN ×2 (11:57→19:32)
--- NOTE | 2019-08-30 13:39 | Cardiology Consultation ---
Date of Consultation August 30, 2019 Assessment & Plan (1) Elevated troponin: (2) Generalized weakness: (3) CKD (chronic kidney disease) stage 4, GFR 15-29 ml/min: (4) CAD (coronary artery disease): I believe the troponin elevation at this time is most likely due to chronic renal insufficiency and not acute coronary syndrome. The patient's symptoms are generalized weakness and anorexia and do not seem to be cardiac at this time. I believe the EKG is most likely due to LVH. I think we can discontinue the IV heparin. He does have an echocardiogram pending which I will will review when it is complete. History of Present Illness Attending Physician: Sylwia Mckinney MD History of Present Illness This is an 89-year-old male patient who was in good health until a few weeks ago. His family is with him in the room during my exam. They informed me that he has had generalized weakness which has been progressive and anorexia. Those are the main complaints of why they brought him to the hospital. He has had no chest pain or progressive shortness of breath. He does have a prior history of coronary artery disease and in 2007 received a coronary stent. From that point forward his heart disease is been stable. He has been followed by Keyshawn Melton through our clinic. He has stage IV chronic kidney disease. After admission his cardiac troponins were mildly elevated and most likely due to the chronic renal insufficiency. His EKG shows left ventricular hypertrophy with T wave abnormalities. An echocardiogram is pending. Allergies Allergy/AdvReac Type Severity Reaction Status Date / Time No Known Allergies Allergy Verified 08/29/19 17:57 Home Medications Home Medications Medication Instructions Recorded Confirmed Type amlodipine 2.5 mg PO DAILY 08/29/19 08/29/19 History aspirin [Aspir-81] 81 mg PO DAILY 08/29/19 08/29/19 History atorvastatin 80 mg PO HS 08/29/19 08/29/19 History cyanocobalamin (vitamin B-12) 1,000 mcg PO DAILY 08/29/19 08/29/19 History [Vitamin B-12] gabapentin 300 mg PO HS 08/29/19 08/29/19 History lisinopril 10 mg PO DAILY 08/29/19 08/29/19 History omega 5-tpt-hpf-fish oil [Fish Oil] 1,000 cap PO DAILY 08/29/19 08/29/19 History Patient History Medical History BPH (benign prostatic hyperplasia) (Chronic) CKD (chronic kidney disease) stage 4, GFR 15-29 ml/min (Chronic) B12 deficiency (Chronic) Schatzki's ring (Chronic) HTN (hypertension) (Chronic) HLD (hyperlipidemia) (Chronic) CAD (coronary artery disease) (Chronic) Surgical History Status post dilation of esophageal narrowing (Chronic) H/O inguinal hernia repair (Chronic) History of repair of hiatal hernia (Chronic) S/P rotator cuff repair (Chronic) Family History Father Diabetes Mother Pancreatic cancer Social History Preferred Language: Ukrainian Communication Ability: Effective Compensator Required: No Beliefs That Will Affect Care: None marital status: Current Living Situation: Spouse Other Information That Helps Us Care for You: No Feels Safe at Home: Yes Safety Concerns: Feels Safe At This Time Smoking Status: Never smoker Hx Alcohol Use: No Hx Substance Use: No Review of Systems Review of Systems: Unobtainable due to mental health condition Physical Exam Physical Exam: General: no acute distress and stated age Head: normocephalic, no masses, lesions, tenderness or abnormalities Eyes: conjunctiva are pink and non-injected, sclera clear Neck: supple, no adenopathy, no bruits, normal jugular venous pulse, no hepatojugular reflux Chest: normal shape and normal respiratory effort Lungs: clear to auscultation and percussion Cardiac Exam: - regular rate & rhythm, no murmurs gallops or rubs - normal S1, normal S2 Pulses: 2(+) throughout Abdomen: abdomen soft, non-tender, no abnormal masses and no hepatosplenomegaly Musculoskeletal: no gait disturbance, no joint inflammation, no deforming arthritis Extremities: no edema and no cyanosis Neuro: grossly normal exam Results & Data Vital Signs (Past 12 Hours) Vital Signs Temp Pulse Pulse Resp BP BP Pulse Ox 08/30/19 11:39 37.7 C H 78 18 126/50 L 91 08/30/19 09:50 37.5 C 08/30/19 08:00 66 08/30/19 07:31 36.8 C 87 16 137/53 L 94 08/30/19 03:24 37.2 C 56 L 17 116/59 L 96 Laboratory Results Laboratory Results - last 24 hr 08/29/19 08/29/19 08/29/19 18:10 18:10 18:10 WBC 2.77 L RBC 3.62 L Hgb 12.4 L Hct 36.7 L MCV 101.4 H MCH 34.3 H MCHC 33.8 RDW Std Deviation 50.2 H RDW Coeff of Satish 13.3 Plt Count 141 MPV 9.5 Immature Gran % (Auto) 0.4 Neut % (Auto) 81.9 Lymph % (Auto) 11.9 Bracken % (Auto) 5.4 Eos % (Auto) 0.0 Baso % (Auto) 0.4 Immature Gran # (Auto) 0.01 Neut # (Auto) 2.27 Lymph # (Auto) 0.33 L Bracken # (Auto) 0.15 Eos # (Auto) 0.00 Baso # (Auto) 0.01 Peripher Smr Path Cons PT 11.5 INR 1.1 APTT PTT Ratio Sodium 138 Potassium 4.3 Chloride 109 H Carbon Dioxide 22 Anion Gap 7.0 BUN 28 H Creatinine 1.98 H Est Cr Clr Drug Dosing Not Reportable Est GFR ( Amer) 34.0 Est GFR (Non-Af Amer) 29.3 BUN/Creatinine Ratio 14.0 Glucose 134 H Calcium 8.6 Magnesium 1.9 Total Bilirubin 1.4 H AST 39 H ALT 34 Alkaline Phosphatase 103 POC Troponin I Troponin I 0.228 H* Total Protein 7.1 Albumin 3.7 Globulin 3.4 Albumin/Globulin Ratio 1.1 Triglycerides Cholesterol LDL Cholesterol, Calc VLDL Cholesterol, Calc HDL Cholesterol Cholesterol/HDL Ratio TSH 0.374 Urine Color Urine Appearance Urine pH Ur Specific Dari[place] Urine Protein Urine Glucose (UA) Urine Ketones Urine Blood Urine Nitrite Urine Bilirubin Urine Urobilinogen Ur Leukocyte Esterase Urine WBC (Auto) Urine RBC (Auto) U Hyaline Cast (Auto) U Epithel Cells (Auto) Urine Bacteria (Auto) Granular Casts Urine Mucus Urine Yeast A. phagocytophilum DNA Lyme Disease IgM Ab Influenza Type A (PCR) Influenza Type B (PCR) 08/29/19 08/29/19 08/29/19 18:10 18:21 23:24 WBC RBC Hgb Hct MCV MCH MCHC RDW Std Deviation RDW Coeff of Satish Plt Count MPV Immature Gran % (Auto) Neut % (Auto) Lymph % (Auto) Bracken % (Auto) Eos % (Auto) Baso % (Auto) Immature Gran # (Auto) Neut # (Auto) Lymph # (Auto) Bracken # (Auto) Eos # (Auto) Baso # (Auto) Peripher Smr Path Cons PT INR APTT 25.6 PTT Ratio 0.9 Sodium Potassium Chloride Carbon Dioxide Anion Gap BUN Creatinine Est Cr Clr Drug Dosing Est GFR ( Amer) Est GFR (Non-Af Amer) BUN/Creatinine Ratio Glucose Calcium Magnesium Total Bilirubin AST ALT Alkaline Phosphatase POC Troponin I 0.17 H Troponin I Total Protein Albumin Globulin Albumin/Globulin Ratio Triglycerides Cholesterol LDL Cholesterol, Calc VLDL Cholesterol, Calc HDL Cholesterol Cholesterol/HDL Ratio TSH Urine Color Dark Yellow Urine Appearance Cloudy A Urine pH 5.0 Ur Specific Darien 1.022 Urine Protein 2+ H Urine Glucose (UA) Negative Urine Ketones Negative Urine Blood Trace H Urine Nitrite Negative Urine Bilirubin Negative Urine Urobilinogen Negative Ur Leukocyte Esterase Negative Urine WBC (Auto) 1-5 Urine RBC (Auto) 5-10 H U Hyaline Cast (Auto) 10-30 H U Epithel Cells (Auto) 20-30 H Urine Bacteria (Auto) Negative Granular Casts 10-20 H Urine Mucus Present A Urine Yeast Not Reportable A. phagocytophilum DNA Lyme Disease IgM Ab Influenza Type A (PCR) Influenza Type B (PCR) 08/29/19 08/30/19 08/30/19 23:45 01:47 01:47 WBC 3.29 L RBC 3.03 L Hgb 10.4 L Hct 30.5 L MCV 100.7 H MCH 34.3 H MCHC 34.1 RDW Std Deviation 49.3 H RDW Coeff of Satish 13.4 Plt Count 112 L MPV 9.3 Immature Gran % (Auto) Neut % (Auto) Lymph % (Auto) Bracken % (Auto) Eos % (Auto) Baso % (Auto) Immature Gran # (Auto) Neut # (Auto) Lymph # (Auto) Bracken # (Auto) Eos # (Auto) Baso # (Auto) Peripher Smr Path Cons PT INR APTT Cancelled PTT Ratio Cancelled Sodium Potassium Chloride Carbon Dioxide Anion Gap BUN Creatinine Est Cr Clr Drug Dosing Est GFR ( Amer) Est GFR (Non-Af Amer) BUN/Creatinine Ratio Glucose Calcium Magnesium Total Bilirubin AST ALT Alkaline Phosphatase POC Troponin I Troponin I Total Protein Albumin Globulin Albumin/Globulin Ratio Triglycerides Cholesterol LDL Cholesterol, Calc VLDL Cholesterol, Calc HDL Cholesterol Cholesterol/HDL Ratio TSH Urine Color Urine Appearance Urine pH Ur Specific D[place] Urine Protein Urine Glucose (UA) Urine Ketones Urine Blood Urine Nitrite Urine Bilirubin Urine Urobilinogen Ur Leukocyte Esterase Urine WBC (Auto) Urine RBC (Auto) U Hyaline Cast (Auto) U Epithel Cells (Auto) Urine Bacteria (Auto) Granular Casts Urine Mucus Urine Yeast A. phagocytophilum DNA Lyme Disease IgM Ab Influenza Type A (PCR) Neg for Influ A Influenza Type B (PCR) Neg for Influ B 08/30/19 08/30/19 08/30/19 01:47 01:47 01:47 WBC RBC Hgb Hct MCV MCH MCHC RDW Std Deviation RDW Coeff of Satish Plt Count MPV Immature Gran % (Auto) Neut % (Auto) Lymph % (Auto) Bracken % (Auto) Eos % (Auto) Baso % (Auto) Immature Gran # (Auto) Neut # (Auto) Lymph # (Auto) Bracken # (Auto) Eos # (Auto) Baso # (Auto) Peripher Smr Path Cons PT INR APTT PTT Ratio Sodium 138 Potassium 4.4 Chloride 110 H Carbon Dioxide 22 Anion Gap 6.0 BUN 31 H Creatinine 2.06 H Est Cr Clr Drug Dosing 21.6 Est GFR ( Amer) 32.4 Est GFR (Non-Af Amer) 27.9 BUN/Creatinine Ratio 15.2 Glucose 141 H Calcium 8.0 L Magnesium Total Bilirubin AST ALT Alkaline Phosphatase POC Troponin I Troponin I 0.245 H* Total Protein Albumin Globulin Albumin/Globulin Ratio Triglycerides 51 Cholesterol 85 LDL Cholesterol, Calc 43 VLDL Cholesterol, Calc 10 HDL Cholesterol 32 Cholesterol/HDL Ratio 3 TSH Urine Color Urine Appearance Urine pH Ur Specific [place] Urine Protein Urine Glucose (UA) Urine Ketones Urine Blood Urine Nitrite Urine Bilirubin Urine Urobilinogen Ur Leukocyte Esterase Urine WBC (Auto) Urine RBC (Auto) U Hyaline Cast (Auto) U Epithel Cells (Auto) Urine Bacteria (Auto) Granular Casts Urine Mucus Urine Yeast A. phagocytophilum DNA Lyme Disease IgM Ab Negative Influenza Type A (PCR) Influenza Type B (PCR) 08/30/19 08/30/19 08/30/19 01:47 03:05 05:22 WBC RBC Hgb Hct MCV MCH MCHC RDW Std Deviation RDW Coeff of Satish Plt Count MPV Immature Gran % (Auto) Neut % (Auto) Lymph % (Auto) Bracken % (Auto) Eos % (Auto) Baso % (Auto) Immature Gran # (Auto) Neut # (Auto) Lymph # (Auto) Bracken # (Auto) Eos # (Auto) Baso # (Auto) Peripher Smr Path Cons PT INR APTT > 139.0 H* 125.2 H* PTT Ratio > 5.1 4.6 Sodium Potassium Chloride Carbon Dioxide Anion Gap BUN Creatinine Est Cr Clr Drug Dosing Est GFR ( Amer) Est GFR (Non-Af Amer) BUN/Creatinine Ratio Glucose Calcium Magnesium Total Bilirubin AST ALT Alkaline Phosphatase POC Troponin I Troponin I Total Protein Albumin Globulin Albumin/Globulin Ratio Triglycerides Cholesterol LDL Cholesterol, Calc VLDL Cholesterol, Calc HDL Cholesterol Cholesterol/HDL Ratio TSH Urine Color Urine Appearance Urine pH Ur Specific [place] Urine Protein Urine Glucose (UA) Urine Ketones Urine Blood Urine Nitrite Urine Bilirubin Urine Urobilinogen Ur Leukocyte Esterase Urine WBC (Auto) Urine RBC (Auto) U Hyaline Cast (Auto) U Epithel Cells (Auto) Urine Bacteria (Auto) Granular Casts Urine Mucus Urine Yeast A. phagocytophilum DNA Pending Lyme Disease IgM Ab Influenza Type A (PCR) Influenza Type B (PCR) 08/30/19 07:11 WBC RBC Hgb Hct MCV MCH MCHC RDW Std Deviation RDW Coeff of Satish Plt Count MPV Immature Gran % (Auto) Neut % (Auto) Lymph % (Auto) Bracken % (Auto) Eos % (Auto) Baso % (Auto) Immature Gran # (Auto) Neut # (Auto) Lymph # (Auto) Bracken # (Auto) Eos # (Auto) Baso # (Auto) Peripher Smr Path Cons PT INR APTT 66.1 H* PTT Ratio 2.4 Sodium Potassium Chloride Carbon Dioxide Anion Gap BUN Creatinine Est Cr Clr Drug Dosing Est GFR ( Amer) Est GFR (Non-Af Amer) BUN/Creatinine Ratio Glucose Calcium Magnesium Total Bilirubin AST ALT Alkaline Phosphatase POC Troponin I Troponin I Total Protein Albumin Globulin Albumin/Globulin Ratio Triglycerides Cholesterol LDL Cholesterol, Calc VLDL Cholesterol, Calc HDL Cholesterol Cholesterol/HDL Ratio TSH Urine Color Urine Appearance Urine pH Ur Specific [place] Urine Protein Urine Glucose (UA) Urine Ketones Urine Blood Urine Nitrite Urine Bilirubin Urine Urobilinogen Ur Leukocyte Esterase Urine WBC (Auto) Urine RBC (Auto) U Hyaline Cast (Auto) U Epithel Cells (Auto) Urine Bacteria (Auto) Granular Casts Urine Mucus Urine Yeast A. phagocytophilum DNA Lyme Disease IgM Ab Influenza Type A (PCR) Influenza Type B (PCR) Medications Administered Current Inpatient Medications Acetaminophen (Tylenol) 650 mg PO Q4H PRN PRN Reason: Pain or Fever Stop: 09/28/19 20:51 Last Admin: 08/30/19 11:57 Dose: 650 mg Documented by: Amlodipine Besylate (Norvasc) 2.5 mg PO DAILY [facility] Stop: 09/29/19 08:59 Last Admin: 08/30/19 07:37 Dose: 2.5 mg Documented by: Aspirin (Ecotrin Ectab) 81 mg PO DAILY [facility] Stop: 09/29/19 08:59 Last Admin: 08/30/19 07:36 Dose: 81 mg Documented by: Atorvastatin Calcium (Lipitor) 80 mg PO HS [facility] Stop: 09/28/19 22:09 Last Admin: 08/29/19 22:33 Dose: 80 mg Documented by: Cyanocobalamin (Vitamin B-12) 1,000 mcg PO DAILY [facility] Stop: 09/29/19 08:59 Last Admin: 08/30/19 07:36 Dose: 1,000 mcg Documented by: Famotidine (Pepcid) 20 mg PO BID [facility] Stop: 09/28/19 22:14 Last Admin: 08/30/19 07:36 Dose: 20 mg Documented by: Gabapentin (Neurontin) 300 mg PO HS [facility] Stop: 09/28/19 20:59 Last Admin: 08/29/19 22:33 Dose: 300 mg Documented by: Sodium Chloride (Nss 1000ml) 1,000 mls @ 125 mls/hr IV .Q8H [facility] Stop: 09/28/19 18:14 Last Admin: 08/30/19 13:30 Dose: 125 mls/hr Documented by: Lisinopril (Zestril) 10 mg PO DAILY [facility] Stop: 09/29/19 08:59 Last Admin: 08/30/19 07:36 Dose: 10 mg Documented by: Metoprolol Tartrate (Lopressor) 12.5 mg PO BID [facility] Stop: 09/29/19 08:59 Last Admin: 08/30/19 07:37 Dose: 12.5 mg Documented by: Nitroglycerin (Nitrostat) 0.4 mg SL UD PRN PRN Reason: Chest Pain Stop: 09/28/19 20:51 Ondansetron HCl (Zofran) 4 mg IV Q6H PRN PRN Reason: Nausea Stop: 09/28/19 20:51 Polyethylene Glycol (Miralax Powder Packet) 17 gm PO DAILY PRN PRN Reason: Constipation Stop: 09/28/19 20:51
[2019-08-30 14:22] LABS: Partial Thromboplastin Ratio 4.2
[2019-08-30] MEDS: ATORVASTATIN 40 MG TAB PO SCH (19:33)
[2019-08-30] MEDS: GABAPENTIN 300 MG CAP PO SCH (19:34)
--- NOTE | 2019-08-30 20:17 | Hospitalist Progress Note ---
Date of Service August 30, 2019 Assessment & Plan (1) Elevated troponin: This is an 89-year-old male with a PMH of CAD ( s/p stent in 2007), dyslipidemia, hypertension, chronic dysphagia with Schatzki's ring, CKD III/IV and other medical problems listed below who presents with progressive shortness of breath and generalized weakness x2 days. - -H/o CAD with stent to LAD in 2007, presented with left arm numbness -EKG was sinus rhythm with PACs, LVH and T wave inversions in leads I and V3-V6. Initial troponin of 0.228. -appreciate input form Cardiology no evidence of ACS IV heparin D/alexia ECHO shows : normal LV ejection function , no wall motion abnormality (2) Bilateral lower extremity edema: BLE with 2+ edema. Reports of chronic edema but more pronounced than baseline -No evidence of volume overload on CXR -Venous doppler : negative for DVT (3) Generalized weakness: Difficulty with ambulation in past few days in setting of poor nutrition, elevated troponin -PT/OT evaluation and conditioning (4) CKD (chronic kidney disease) stage 4, GFR 15-29 ml/min: H/o CKD III/IV with baseline Cr ~ 1.7-2 with GFR in high 20s- low30s admitted with BREANNA with elevated Cr -avoid Nephrotoxin , pt was given Iv fluid will be D/alexia follow PRP consider Nephro consult if renal function continues to worsen (5) Schatzki's ring: H/o balloon dilation in February 2017. Follows with [facility] -Chronic dysphagia, difficulty eating poultry, needs food in small bites -Aspiration precautions -ordered for speech eval (6) HTN (hypertension): added lopressor -Continue home amlodipine, lisinopril (7) Inguinal nodule: Chronic pain in left inguinal region following inguinal hernia surgery with revision -Following with general surgery. June 2019 MRI pelvis wo contrast with focal thickening and edema of the anterior abdominal wall in the left inguinal region. This does not have the appearance of a muscle strain or recurrent hernia and is likely postoperative in nature -Consider cardiac clearance prior to any type of surgical intervention (8) HLD (hyperlipidemia): Continue statin (9) B12 deficiency: Continue cyanocobalamin DVT Ppx: sc heparin Code status: FULL per discussion with patient PCP: Dr Wilberto Houser Dispo: PT/OT eval social service consulted for discharge planning Subjective Shortness of breath has markedly improved no orthopnea no chest pain or palpitataion no fever or chills feels much better today Physical Exam Constitutional: WD/WN, vitals as above no acute distress Eyes: PERRL, conjunctivae normal, anicteric sclerae ENMT: external ear and nose normal, oropharynx normal Neck: trachea midline, no thyromegaly Respiratory: normal respiratory effort, lungs clear to auscultation Cardiovascular: Rate/Rhythm: regular rate and regular rhythm Extremities: + edema Gastrointestinal (Abdomen): normal bowel sounds, soft, nontender, no hepatosplenomegaly Musculoskeletal: no cyanosis or clubbing, extremities motor strength 5/5 Skin: no rashes, warm and dry Neurologic: PERRL, EOMI, accommodation nl, no face palsy, no dysarthria Psychiatric: A+Ox3, euthymic affect Results & Data Vital Signs (Past 12 Hours) Vital Signs Temp Pulse Resp BP Pulse Ox 08/30/19 19:18 38.5 C H 88 19 147/72 H 91 08/30/19 15:40 36.9 C 90 16 110/48 L 94 08/30/19 11:39 37.7 C H 78 18 126/50 L 91 08/30/19 09:50 37.5 C
[2019-08-31] MEDS: ACETAMINOPHEN 325 MG TAB PO PRN (04:14)
[2019-08-31 07:20] LABS: Hematocrit (blood only) 27.3 % (42-52); Hemoglobin 9.5 g/dL (14.0-18.0); Mean Corpuscular Hemoglobin 34.3 pg (25-34); Mean Corpuscular Hgb Conc 34.8 g/dL (32-36); Mean Corpuscular Volume 98.6 fL (80-100); RDW Coefficient of Variation 13.4 % (11.5-14.5); RDW Standard Deviation 48.8 fL (36.4-46.3); Red Blood Count 2.77 M/uL (4.7-6.1)
[2019-08-31 07:44] LABS: Mean Platelet Volume 10.4 fL (7.4-10.4); Platelet Count 90 K/uL (130-400)
[2019-08-31 07:53] LABS: BUN Creatinine Ratio 19.8 (10-20); Calcium 7.9 mg/dl (8.5-10.1); Creatinine Clr Calc Pharmacy 23.3 ml/min; Est GFR (African American) 35.5; Est GFR (Non-African American) 30.6; Potassium 3.9 mmol/L (3.5-5.1)
[2019-08-31] MEDS: ASPIRIN 81 MG ECTAB PO SCH (08:10)
[2019-08-31] MEDS: METOPROLOL TARTRATE 25 MG TAB PO SCH ×2 (08:10→20:53)
[2019-08-31] MEDS: FAMOTIDINE 20 MG TAB PO SCH ×2 (08:11→20:51)
[2019-08-31] MEDS: CYANOCOBALAMIN 500 MCG TABLET (VITAMIN B-12) PO SCH (08:11)
[2019-08-31] MEDS: AMLODIPINE BESYLATE 5 MG TAB PO SCH (08:11)
[2019-08-31] MEDS: lisinopriL 10 MG TAB PO SCH (08:11)
--- NOTE | 2019-08-31 13:23 | Cardiology Progress Note ---
Date of Service August 31, 2019 Assessment & Plan (1) Elevated troponin: (2) Generalized weakness: (3) CKD (chronic kidney disease) stage 4, GFR 15-29 ml/min: (4) CAD (coronary artery disease): (5) Pancytopenia: The patient's echocardiogram shows a very good heart for patient this age. I anticipate no additional cardiac testing. Of note is that he has developed a pancytopenia. Subjective The patient is sitting in a chair. Physical therapy did work with him today. He states he has chills. Review of Systems Review of Systems: All systems reviewed & are unremarkable except as noted in HPI & below Nothing additional to add. Physical Exam Physical Exam: General: no acute distress and stated age Head: normocephalic, no masses, lesions, tenderness or abnormalities Eyes: conjunctiva are pink and non-injected, sclera clear Neck: supple, no adenopathy, no bruits, normal jugular venous pulse, no hepatojugular reflux Chest: normal shape and normal respiratory effort Lungs: clear to auscultation and percussion Cardiac Exam: - regular rate & rhythm, no murmurs gallops or rubs - normal S1, normal S2 Pulses: 2(+) throughout Abdomen: abdomen soft, non-tender, no abnormal masses and no hepatosplenomegaly Musculoskeletal: no gait disturbance, no joint inflammation, no deforming arthritis Extremities: no edema and no cyanosis Neuro: grossly normal exam Results & Data Vital Signs (Past 12 Hours) Vital Signs Temp Pulse Pulse Resp BP BP Pulse Ox 08/31/19 08:00 76 08/31/19 07:44 36.9 C 82 18 151/73 H 90 08/31/19 03:46 37.9 C H 89 20 112/61 91 Laboratory Results Laboratory Results - last 24 hr 08/30/19 08/31/19 08/31/19 13:47 06:40 06:40 WBC 1.90 L RBC 2.77 L Hgb 9.5 L Hct 27.3 L MCV 98.6 MCH 34.3 H MCHC 34.8 RDW Std Deviation 48.8 H RDW Coeff of Satish 13.4 Plt Count 90 L MPV 10.4 APTT 115.0 H* PTT Ratio 4.2 Sodium 135 L Potassium 3.9 Chloride 108 H Carbon Dioxide 19 L Anion Gap 8.0 BUN 38 H Creatinine 1.91 H Est Cr Clr Drug Dosing 23.3 Est GFR ( Amer) 35.5 Est GFR (Non-Af Amer) 30.6 BUN/Creatinine Ratio 19.8 Glucose 117 H Calcium 7.9 L Anaplasma Smear 08/31/19 06:40 WBC RBC Hgb Hct MCV MCH MCHC RDW Std Deviation RDW Coeff of Satish Plt Count MPV APTT PTT Ratio Sodium Potassium Chloride Carbon Dioxide Anion Gap BUN Creatinine Est Cr Clr Drug Dosing Est GFR ( Amer) Est GFR (Non-Af Amer) BUN/Creatinine Ratio Glucose Calcium Anaplasma Smear See Comment Medications Administered Current Inpatient Medications Acetaminophen (Tylenol) 650 mg PO Q4H PRN PRN Reason: Pain or Fever Stop: 09/28/19 20:51 Last Admin: 08/31/19 04:14 Dose: 650 mg Documented by: Amlodipine Besylate (Norvasc) 2.5 mg PO DAILY [facility] Stop: 09/29/19 08:59 Last Admin: 08/31/19 08:11 Dose: 2.5 mg Documented by: Aspirin (Ecotrin Ectab) 81 mg PO DAILY [facility] Stop: 09/29/19 08:59 Last Admin: 08/31/19 08:10 Dose: 81 mg Documented by: Atorvastatin Calcium (Lipitor) 80 mg PO HS [facility] Stop: 09/28/19 22:09 Last Admin: 08/30/19 19:33 Dose: 80 mg Documented by: Cyanocobalamin (Vitamin B-12) 1,000 mcg PO DAILY [facility] Stop: 09/29/19 08:59 Last Admin: 08/31/19 08:11 Dose: 1,000 mcg Documented by: Famotidine (Pepcid) 20 mg PO BID [facility] Stop: 09/28/19 22:14 Last Admin: 08/31/19 08:11 Dose: 20 mg Documented by: Gabapentin (Neurontin) 300 mg PO HS [facility] Stop: 09/28/19 20:59 Last Admin: 08/30/19 19:34 Dose: 300 mg Documented by: Lisinopril (Zestril) 10 mg PO DAILY [facility] Stop: 09/29/19 08:59 Last Admin: 08/31/19 08:11 Dose: 10 mg Documented by: Metoprolol Tartrate (Lopressor) 12.5 mg PO BID [facility] Stop: 09/29/19 08:59 Last Admin: 08/31/19 08:10 Dose: 12.5 mg Documented by: Nitroglycerin (Nitrostat) 0.4 mg SL UD PRN PRN Reason: Chest Pain Stop: 09/28/19 20:51 Ondansetron HCl (Zofran) 4 mg IV Q6H PRN PRN Reason: Nausea Stop: 09/28/19 20:51 Polyethylene Glycol (Miralax Powder Packet) 17 gm PO DAILY PRN PRN Reason: Constipation Stop: 09/28/19 20:51
[2019-08-31 14:26] LABS: Ferritin 1910.3 ng/ml (8-388)
--- NOTE | 2019-08-31 15:15 | Hospitalist Progress Note ---
Date of Service August 31, 2019 Assessment & Plan (1) Elevated troponin: This is an 89-year-old male with a PMH of CAD ( s/p stent in 2007), dyslipidemia, hypertension, chronic dysphagia with Schatzki's ring, CKD III/IV and other medical problems listed below who presents with progressive shortness of breath and generalized weakness x2 days. -H/o CAD with stent to LAD in 2007, presented with left arm numbness ECHO shows : normal LV ejection function , no wall motion abnormality ACS ruled out (2) Fever: cultures pending CXR no pneumonia Lyme IgM negative, check Western blot Anaplasmosis DNA pending -- will start empiric Ceftriaxone 2g IV for possible Lyme of Anaplasmosis given pancytopenia (3) Pancytopenia: Peripheral smear noted The CBC shows pancytopenia with WBC 3.28, H/H 10.4/30.5 and PLT 112 . The morphologic features of the smear are nonspecific. The patient has a history of cardiac disease and presents with increasing dyspnea. The differential includes infection, nutritional deficiency, drug therapy, primary marrow disorder such as myelodysplasia, aplastic anemia, or marrow replacement by tumor. No anaplasmosis is identified. No overt dysplasia is noted. No malignancy is identified. -- anemia panel ordered (+) iron deficiency Iron supplement ordered -- Lyme Western blot, Anaplasmosis DNA pending -- Ceftriaxone IV ordered monitor will discuss with Housing Manager Dr. Smith (4) Left inguinal pain: s/p Herniorappy last year - will consult General Surgery (5) Dysphagia: history of Schatzi's ring -- GI consulted Speech Therapy consulted (6) Bilateral lower extremity edema: BLE with 2+ edema. Reports of chronic edema but more pronounced than baseline -No evidence of volume overload on CXR -Venous doppler : negative for DVT (7) Generalized weakness: - likely from #2 (8) CKD (chronic kidney disease) stage 4, GFR 15-29 ml/min: H/o CKD III/IV with baseline Cr ~ 1.7-2 with GFR in high 20s- low30s -- crea 1.9 monitor (9) HTN (hypertension): added lopressor -Continue home amlodipine, lisinopril (10) Inguinal nodule: Chronic pain in left inguinal region following inguinal hernia surgery with revision -Following with general surgery. June 2019 MRI pelvis wo contrast with focal thickening and edema of the anterior abdominal wall in the left inguinal region. This does not have the appearance of a muscle strain or recurrent hernia and is likely postoperative in nature (11) HLD (hyperlipidemia): Continue statin (12) B12 deficiency: Continue cyanocobalamin DVT Ppx: sc heparin Code status: FULL per discussion with patient PCP: Dr Wilberto Houser Dispo: PT/OT eval social service consulted for discharge planning Subjective ff up for possible ACS, fever seen resting in bed, sleeping but easily rousable at bedside was noted to have some confusion earlier, improved during my exam reports he feels weak all over, unable to ambulate well no headache, neck pain, cough, dyspnea, chest pain, abdominal pain, diarrhea, urinary symptoms does report persistent pain on the left hernia repair site reports fever/chills, joint pains few days prior to admission denies bleeding reports patient is having progressive dysphagia, mostly to solid no other symptoms Review of Systems Review of Systems: All systems reviewed & are unremarkable except as noted in HPI & below Physical Exam Physical Exam: General- oriented x 3, not in distress, speaks in sentences with no effort or accessory muscle use Head- atraumatic Eyes- PERRL, EOMI, anicteric ENT- oropharynx clear Neck- supple, no JVD, no adenopathy, no thyromegaly; carotids +2/2, no bruits appreciated Lungs- clear to auscultation bilaterally, no rales/wheezes Heart- normal rate, regular rhythm; no murmur, no gallop, no rub appreciated Abdomen- normal bowel sounds, nondistended, soft, nontender, no masses or hepatosplenomegaly mild tenderness left upper inguinal region, area of mesh from herniorappy Extremities- no pretibial edema, no calf tenderness; peripheral pulses intact Neuro- alert, oriented x 3; CN 2-12 grossly intact; motor 5/5 bilaterally;sensation 100% on all extremities; no other gross focal neurologic deficits Skin- warm & dry Results & Data Vital Signs (Past 12 Hours) Vital Signs Temp Pulse Pulse Resp BP BP Pulse Ox 08/31/19 13:55 94 08/31/19 13:38 92 08/31/19 08:00 76 08/31/19 07:44 36.9 C 82 18 151/73 H 90 08/31/19 03:46 37.9 C H 89 20 112/61 91 Laboratory Results Laboratory Results - last 24 hr 08/31/19 08/31/19 08/31/19 06:40 06:40 06:40 WBC 1.90 L RBC 2.77 L Hgb 9.5 L Hct 27.3 L MCV 98.6 MCH 34.3 H MCHC 34.8 RDW Std Deviation 48.8 H RDW Coeff of Satish 13.4 Plt Count 90 L MPV 10.4 Sodium 135 L Potassium 3.9 Chloride 108 H Carbon Dioxide 19 L Anion Gap 8.0 BUN 38 H Creatinine 1.91 H Est Cr Clr Drug Dosing 23.3 Est GFR ( Amer) 35.5 Est GFR (Non-Af Amer) 30.6 BUN/Creatinine Ratio 19.8 Glucose 117 H POC Glucose Calcium 7.9 L Iron TIBC Transferrin Ferritin Folate Anaplasma Smear See Comment Lyme IgG (Western Blot) Lyme IgG 18 kDa Band Lyme IgG 23 kDa Band Lyme IgG 28 kDa Band Lyme IgG 30 kDa Band Lyme IgG 39 kDa Band Lyme IgG 41 kDa Band Lyme IgG 45 kDa Band Lyme IgG 58 kDa Band Lyme IgG 66 kDa Band Lyme IgG 93 kDa Band Lyme IgM (Western Blot) Lyme IgM 23 kDa Band Lyme IgM 39 kDa Band Lyme IgM 41 kDa Band 08/31/19 08/31/19 08/31/19 06:40 13:24 15:23 WBC RBC Hgb Hct MCV MCH MCHC RDW Std Deviation RDW Coeff of Satish Plt Count MPV Sodium Potassium Chloride Carbon Dioxide Anion Gap BUN Creatinine Est Cr Clr Drug Dosing Est GFR ( Amer) Est GFR (Non-Af Amer) BUN/Creatinine Ratio Glucose POC Glucose 145 H Calcium Iron 18 L TIBC 152 L Transferrin 118 L Ferritin 1910.3 H Folate 18.24 Anaplasma Smear Lyme IgG (Western Blot) Lyme IgG 18 kDa Band Lyme IgG 23 kDa Band Lyme IgG 28 kDa Band Lyme IgG 30 kDa Band Lyme IgG 39 kDa Band Lyme IgG 41 kDa Band Lyme IgG 45 kDa Band Lyme IgG 58 kDa Band Lyme IgG 66 kDa Band Lyme IgG 93 kDa Band Lyme IgM (Western Blot) Lyme IgM 23 kDa Band Lyme IgM 39 kDa Band Lyme IgM 41 kDa Band 08/31/19 15:23 WBC RBC Hgb Hct MCV MCH MCHC RDW Std Deviation RDW Coeff of Satish Plt Count MPV Sodium Potassium Chloride Carbon Dioxide Anion Gap BUN Creatinine Est Cr Clr Drug Dosing Est GFR ( Amer) Est GFR (Non-Af Amer) BUN/Creatinine Ratio Glucose POC Glucose Calcium Iron TIBC Transferrin Ferritin Folate Anaplasma Smear Lyme IgG (Western Blot) Pending Lyme IgG 18 kDa Band Pending Lyme IgG 23 kDa Band Pending Lyme IgG 28 kDa Band Pending Lyme IgG 30 kDa Band Pending Lyme IgG 39 kDa Band Pending Lyme IgG 41 kDa Band Pending Lyme IgG 45 kDa Band Pending Lyme IgG 58 kDa Band Pending Lyme IgG 66 kDa Band Pending Lyme IgG 93 kDa Band Pending Lyme IgM (Western Blot) Pending Lyme IgM 23 kDa Band Pending Lyme IgM 39 kDa Band Pending Lyme IgM 41 kDa Band Pending
[2019-08-31] MEDS: SODIUM CHLORIDE 0.9% 1000ML 1,000 ML IV SCH (15:50)
[2019-08-31] MEDS: cefTRIAXone SODIUM 2,000 MG in DEXTROSE 5% 50 ML IV SCH (16:02)
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
[2019-08-31] MEDS: FERROUS SULFATE 325 MG TAB PO SCH (20:49)
[2019-08-31] MEDS: ATORVASTATIN 40 MG TAB PO SCH (20:50)
[2019-08-31] MEDS: GABAPENTIN 300 MG CAP PO SCH (20:50)
[2019-09-01] MEDS: SODIUM CHLORIDE 0.9% 1000ML 1,000 ML IV SCH ×2 (01:30→10:47)
[2019-09-01 08:24] LABS: Hematocrit (blood only) 28.9 % (42-52); Hemoglobin 10.1 g/dL (14.0-18.0); Mean Corpuscular Hemoglobin 34.6 pg (25-34); Mean Corpuscular Hgb Conc 34.9 g/dL (32-36); RDW Coefficient of Variation 13.4 % (11.5-14.5); RDW Standard Deviation 48.4 fL (36.4-46.3); Red Blood Count 2.92 M/uL (4.7-6.1)
[2019-09-01] MEDS: ASPIRIN 81 MG ECTAB PO SCH (08:29)
[2019-09-01] MEDS: FERROUS SULFATE 325 MG TAB PO SCH ×2 (08:30→21:03)
[2019-09-01] MEDS: METOPROLOL TARTRATE 25 MG TAB PO SCH ×2 (08:30→21:02)
[2019-09-01] MEDS: CYANOCOBALAMIN 500 MCG TABLET (VITAMIN B-12) PO SCH (08:30)
[2019-09-01 08:31] LABS: BUN Creatinine Ratio 19.9 (10-20); Calcium 7.8 mg/dl (8.5-10.1); Creatinine Clr Calc Pharmacy 24.3 ml/min; Est GFR (African American) 37.3; Est GFR (Non-African American) 32.2
[2019-09-01] MEDS: lisinopriL 10 MG TAB PO SCH (08:31)
[2019-09-01] MEDS: FAMOTIDINE 20 MG TAB PO SCH (08:32)
[2019-09-01] MEDS: AMLODIPINE BESYLATE 5 MG TAB PO SCH (09:05)
[2019-09-01 09:26] LABS: Platelet Count 73 K/uL (130-400)
[2019-09-01 09:28] LABS: Basophils # (auto) 0.02 K/uL (0-0.2); Immature Granulocytes # (auto) 0.01 K/uL (0.00-0.02); Immature Granulocytes % (auto) 0.5 %; Lymphocytes # (auto) 0.48 K/uL (1.2-3.4); Neutrophils # (auto) 1.29 K/uL (1.4-6.5); Neutrophils % (auto) 64.5 %
--- NOTE | 2019-09-01 10:54 | Hospitalist Progress Note ---
Date of Service September 01, 2019 Assessment & Plan (1) Generalized weakness: (1) Elevated troponin: This is an 89-year-old male with a PMH of CAD ( s/p stent in 2007), dyslipidemia, hypertension, chronic dysphagia with Schatzki's ring, CKD III/IV and other medical problems listed below who presents with progressive shortness of breath and generalized weakness x2 days. -H/o CAD with stent to LAD in 2007, presented with left arm numbness ECHO shows : normal LV ejection function , no wall motion abnormality ACS ruled out (2) Fever: cultures pending CXR no pneumonia Lyme IgM negative, check Western blot Anaplasmosis DNA pending -- continue empiric Ceftriaxone 2g IV for possible Lyme or Anaplasmosis given pancytopenia -- improving ff up cultures, Lyme, Anaplasmosis studies (3) Pancytopenia: Peripheral smear noted The CBC shows pancytopenia with WBC 3.28, H/H 10.4/30.5 and PLT 112 . The morphologic features of the smear are nonspecific. The patient has a history of cardiac disease and presents with increasing dyspnea. The differential includes infection, nutritional deficiency, drug therapy, primary marrow disorder such as myelodysplasia, aplastic anemia, or marrow replacement by tumor. No anaplasmosis is identified. No overt dysplasia is noted. No malignancy is identified. -- anemia panel ordered (+) iron deficiency Iron supplement ordered -- Lyme Western blot, Anaplasmosis DNA pending -- Ceftriaxone IV ordered monitor discussed with Equity Sales Assistant Dr. Smith -- Neutropenia precautions (4) Left inguinal pain: s/p Herniorappy last year - consulted General Surgery ff up as outpatient (5) Dysphagia: history of Schatzi's ring -- GI consulted Speech Therapy consulted -- no EGD for now until infectious process resolves follow Speech Tx recommendations (6) Bilateral lower extremity edema: BLE with 2+ edema. Reports of chronic edema but more pronounced than baseline -No evidence of volume overload on CXR -Venous doppler : negative for DVT (7) Generalized weakness: - likely from #2 (8) CKD (chronic kidney disease) stage 4, GFR 15-29 ml/min: H/o CKD III/IV with baseline Cr ~ 1.7-2 with GFR in high 20s- low30s -- crea 1.8; monitor (9) HTN (hypertension): added lopressor -Continue home amlodipine, lisinopril (10) Inguinal nodule: Chronic pain in left inguinal region following inguinal hernia surgery with revision -Following with general surgery. June 2019 MRI pelvis wo contrast with focal thickening and edema of the anterior abdominal wall in the left inguinal region. This does not have the appearance of a muscle strain or recurrent hernia and is likely postoperative in nature (11) HLD (hyperlipidemia): Continue statin (12) B12 deficiency: Continue cyanocobalamin DVT px SCDs only in light of thrombocytopenia Disposition may need SNF upon discharge Subjective ff up for weakness, fever, pancytopenia seen resting in bed, sleeping but easily awakened oriented, answers questions appropriately states he feels somewhat better today less weak, denies chest pain, dyspnea, abdominal pain l inquinal pain about the same appetite better this morning, denies problems with swallowing patient's reports patient has improved today compared to yesterday no other symptoms Review of Systems Review of Systems: All systems reviewed & are unremarkable except as noted in HPI & below Physical Exam Physical Exam: General- oriented x 2, not in distress, speaks in sentences with no effort or accessory muscle use Eyes- anicteric Neck- no JVD Lungs- clear breath sounds bilaterally, no rales/wheezes Heart- normal rate, regular rhythm; no murmurs Abdomen- normal bowel sounds, nondistended, soft, nontender Extremities- mild lower leg edema, no calf tenderness Neuro- alert, oriented x 3; no gross focal neurologic deficits Skin- warm & dry Results & Data Vital Signs (Past 12 Hours) Vital Signs Temp Pulse Pulse Resp BP BP Pulse Ox 09/01/19 09:38 92 H 09/01/19 07:40 37.4 C 87 18 158/51 H 88 L 09/01/19 04:18 36.5 C 79 17 136/68 91 08/31/19 23:54 72 08/31/19 23:30 37.2 C 80 18 141/72 H 93
[2019-09-01] MEDS: FOLIC ACID 1 MG TAB PO SCH (11:29)
--- NOTE | 2019-09-01 13:16 | Gastrointestinal Consultation ---
Date of Consultation September 01, 2019 Assessment & Plan (1) Dysphagia: Pt is a 89 y/o male seen for dysphagia. Hx of Schatzki ring s/p dilation and gastritis seen during EGD eval in 2017. EGD was done by Dr. Juan Gomez from [facility]. Received report from hospitalist that pt's requests he be evaluated for repeat dilation. Pt's primary symptoms for his admission included SOB, weakness and confusion. He is noted to be pancytopenic and had elevated Troponin levels. He is getting infectious workup and Cardiology had evaluated pt noted that his elevated Troponin likely is related to his renal insufficiency rather than acure coronary syndrome. As I'm interviewing pt, he's seen sitting upright eating bite sized foods w/o signs of chocking or coughing. He denies any trouble w food getting stuck or odynophagia. I explained to pt and his that repeating EGD eval w possible dilation at this time would not be in his best interest in light of possible infectious process he's going through and with the pancytopenia putting him at high risk for bleeding complications. They are agreeable to defer endoscopic evals. He is currently on Famotidine. I changed it to Protonix 40mg daily for better acid reflux coverage given his hx of Schatzki ring. He may continue w soft, slippery, bite sized diet. Aspiration precaution. GI to sign off; pls recall prn. On his DC he can f/u w his primary GI provider (Dr. Gomez). History of Present Illness Reason for Consultation: Dysphagia Requesting Physician: Dr. Jeancarlos Valdovinos Attending Physician: Dr. Clifton Green History of Present Illness Pt is a 89 y/o male admitted currently for SOB, progressive weakness and confusion. He noted to have pancytopenia, also have elevated Troponin; currently getting infectious workup including Lymes and Anasplasmosis. GI is consulted for dysphagia. Pt had hx of Schatzki ring, s/p dilation via EGD and gastritis seen in EGD done by Dr. Juan Gomez ([facility]) in 2017. Bx from EGD not available to review. reports pt having trouble w swallowing of dry foods including chicken, turkey, bread. Pt himself denies any painful swallowing, n/v, or abd pain symptoms. He is seen sitting up in bed, eating bite sized foods including carrot, fish, mashed potatoes, fruits w/o signs of coughing or chocking. Allergies Allergy/AdvReac Type Severity Reaction Status Date / Time No Known Allergies Allergy Verified 08/29/19 17:57 Home Medications Home Medications Medication Instructions Recorded Confirmed Type amlodipine 2.5 mg PO DAILY 08/29/19 08/29/19 History aspirin [Aspir-81] 81 mg PO DAILY 08/29/19 08/29/19 History atorvastatin 80 mg PO HS 08/29/19 08/29/19 History cyanocobalamin (vitamin B-12) 1,000 mcg PO DAILY 08/29/19 08/29/19 History [Vitamin B-12] gabapentin 300 mg PO HS 08/29/19 08/29/19 History lisinopril 10 mg PO DAILY 08/29/19 08/29/19 History omega [id number] oil [Fish Oil] 1,000 cap PO DAILY 08/29/19 08/29/19 History Patient History Medical History BPH (benign prostatic hyperplasia) (Chronic) CKD (chronic kidney disease) stage 4, GFR 15-29 ml/min (Chronic) B12 deficiency (Chronic) Schatzki's ring (Chronic) HTN (hypertension) (Chronic) HLD (hyperlipidemia) (Chronic) CAD (coronary artery disease) (Chronic) Surgical History Status post dilation of esophageal narrowing (Chronic) H/O inguinal hernia repair (Chronic) History of repair of hiatal hernia (Chronic) S/P rotator cuff repair (Chronic) Family History Father Diabetes Mother Pancreatic cancer Social History Preferred Language: [place] Communication Ability: Effective Order Entry Representative Required: No Beliefs That Will Affect Care: None marital status: Current Living Situation: Spouse Other Information That Helps Us Care for You: No Feels Safe at Home: Yes Safety Concerns: Feels Safe At This Time Smoking Status: Never smoker Hx Alcohol Use: No Hx Substance Use: No Review of Systems Review of Systems: All systems reviewed & are unremarkable except as noted in HPI & below Physical Exam Constitutional: WD/WN, vitals as above well groomed, cooperative and comfortable Eyes: PERRL, conjunctivae normal, anicteric sclerae ENMT: external ear and nose normal, oropharynx normal Respiratory: no respiratory distress and does not use accessory muscles Auscultation: + diminished lung sounds Cardiovascular: RRR, no murmur, no edema Gastrointestinal (Abdomen): normal bowel sounds, soft, nontender, no hepatosplenomegaly Skin: no rashes, warm and dry no jaundice Neurologic: Motor/Sensory: no asterixis Psychiatric: Orientation: alert, oriented to person, oriented to place and cooperative; + not oriented to time Lymphatic: no lymphedema Results & Data Vital Signs (Past 12 Hours) Vital Signs Temp Pulse Pulse Resp BP BP Pulse Ox 09/01/19 11:53 37.6 C H 77 18 148/64 H 96 09/01/19 09:38 92 H 09/01/19 07:40 37.4 C 87 18 158/51 H 88 L 09/01/19 04:18 36.5 C 79 17 136/68 91 Laboratory Results Laboratory Results - last 72 hr 08/29/19 08/29/19 08/29/19 18:10 18:10 18:10 WBC 2.77 L RBC 3.62 L Hgb 12.4 L Hct 36.7 L MCV 101.4 H MCH 34.3 H MCHC 33.8 RDW Std Deviation 50.2 H RDW Coeff of Satish 13.3 Plt Count 141 MPV 9.5 Immature Gran % (Auto) 0.4 Neut % (Auto) 81.9 Lymph % (Auto) 11.9 [place] % (Auto) 5.4 Eos % (Auto) 0.0 Baso % (Auto) 0.4 Immature Gran # (Auto) 0.01 Neut # (Auto) 2.27 Lymph # (Auto) 0.33 L [place] # (Auto) 0.15 Eos # (Auto) 0.00 Baso # (Auto) 0.01 Peripher Smr Path Cons PT 11.5 INR 1.1 APTT PTT Ratio Sodium 138 Potassium 4.3 Chloride 109 H Carbon Dioxide 22 Anion Gap 7.0 BUN 28 H Creatinine 1.98 H Est Cr Clr Drug Dosing Not Reportable Est GFR ( Amer) 34.0 Est GFR (Non-Af Amer) 29.3 BUN/Creatinine Ratio 14.0 Glucose 134 H POC Glucose Calcium 8.6 Magnesium 1.9 Iron TIBC Transferrin Ferritin Total Bilirubin 1.4 H AST 39 H ALT 34 Alkaline Phosphatase 103 POC Troponin I Troponin I 0.228 H* Total Protein 7.1 Albumin 3.7 Globulin 3.4 Albumin/Globulin Ratio 1.1 Triglycerides Cholesterol LDL Cholesterol, Calc VLDL Cholesterol, Calc HDL Cholesterol Cholesterol/HDL Ratio Vitamin B12 Folate TSH 0.374 Urine Color Urine Appearance Urine pH Ur Specific [place] Urine Protein Urine Glucose (UA) Urine Ketones Urine Blood Urine Nitrite Urine Bilirubin Urine Urobilinogen Ur Leukocyte Esterase Urine WBC (Auto) Urine RBC (Auto) U Hyaline Cast (Auto) U Epithel Cells (Auto) Urine Bacteria (Auto) Granular Casts Urine Mucus Urine Yeast Anaplasma Smear Lyme Disease IgM Ab Influenza Type A (PCR) Influenza Type B (PCR) 08/29/19 08/29/19 08/29/19 18:10 18:21 23:24 WBC RBC Hgb Hct MCV MCH MCHC RDW Std Deviation RDW Coeff of Satish Plt Count MPV Immature Gran % (Auto) Neut % (Auto) Lymph % (Auto) [place] % (Auto) Eos % (Auto) Baso % (Auto) Immature Gran # (Auto) Neut # (Auto) Lymph # (Auto) [place] # (Auto) Eos # (Auto) Baso # (Auto) Peripher Smr Path Cons PT INR APTT 25.6 PTT Ratio 0.9 Sodium Potassium Chloride Carbon Dioxide Anion Gap BUN Creatinine Est Cr Clr Drug Dosing Est GFR ( Amer) Est GFR (Non-Af Amer) BUN/Creatinine Ratio Glucose POC Glucose Calcium Magnesium Iron TIBC Transferrin Ferritin Total Bilirubin AST ALT Alkaline Phosphatase POC Troponin I 0.17 H Troponin I Total Protein Albumin Globulin Albumin/Globulin Ratio Triglycerides Cholesterol LDL Cholesterol, Calc VLDL Cholesterol, Calc HDL Cholesterol Cholesterol/HDL Ratio Vitamin B12 Folate TSH Urine Color Dark Yellow Urine Appearance Cloudy A Urine pH 5.0 Ur Specific [place] 1.022 Urine Protein 2+ H Urine Glucose (UA) Negative Urine Ketones Negative Urine Blood Trace H Urine Nitrite Negative Urine Bilirubin Negative Urine Urobilinogen Negative Ur Leukocyte Esterase Negative Urine WBC (Auto) 1-5 Urine RBC (Auto) 5-10 H U Hyaline Cast (Auto) 10-30 H U Epithel Cells (Auto) 20-30 H Urine Bacteria (Auto) Negative Granular Casts 10-20 H Urine Mucus Present A Urine Yeast Not Reportable Anaplasma Smear Lyme Disease IgM Ab Influenza Type A (PCR) Influenza Type B (PCR) 08/29/19 08/30/19 08/30/19 23:45 01:47 01:47 WBC 3.29 L RBC 3.03 L Hgb 10.4 L Hct 30.5 L MCV 100.7 H MCH 34.3 H MCHC 34.1 RDW Std Deviation 49.3 H RDW Coeff of Satish 13.4 Plt Count 112 L MPV 9.3 Immature Gran % (Auto) Neut % (Auto) Lymph % (Auto) [place] % (Auto) Eos % (Auto) Baso % (Auto) Immature Gran # (Auto) Neut # (Auto) Lymph # (Auto) [place] # (Auto) Eos # (Auto) Baso # (Auto) Peripher Smr Path Cons PT INR APTT Cancelled PTT Ratio Cancelled Sodium Potassium Chloride Carbon Dioxide Anion Gap BUN Creatinine Est Cr Clr Drug Dosing Est GFR ( Amer) Est GFR (Non-Af Amer) BUN/Creatinine Ratio Glucose POC Glucose Calcium Magnesium Iron TIBC Transferrin Ferritin Total Bilirubin AST ALT Alkaline Phosphatase POC Troponin I Troponin I Total Protein Albumin Globulin Albumin/Globulin Ratio Triglycerides Cholesterol LDL Cholesterol, Calc VLDL Cholesterol, Calc HDL Cholesterol Cholesterol/HDL Ratio Vitamin B12 Folate TSH Urine Color Urine Appearance Urine pH Ur Specific [place] Urine Protein Urine Glucose (UA) Urine Ketones Urine Blood Urine Nitrite Urine Bilirubin Urine Urobilinogen Ur Leukocyte Esterase Urine WBC (Auto) Urine RBC (Auto) U Hyaline Cast (Auto) U Epithel Cells (Auto) Urine Bacteria (Auto) Granular Casts Urine Mucus Urine Yeast Anaplasma Smear Lyme Disease IgM Ab Influenza Type A (PCR) Neg for Influ A Influenza Type B (PCR) Neg for Influ B 08/30/19 08/30/19 08/30/19 01:47 01:47 01:47 WBC RBC Hgb Hct MCV MCH MCHC RDW Std Deviation RDW Coeff of Satish Plt Count MPV Immature Gran % (Auto) Neut % (Auto) Lymph % (Auto) [place] % (Auto) Eos % (Auto) Baso % (Auto) Immature Gran # (Auto) Neut # (Auto) Lymph # (Auto) [place] # (Auto) Eos # (Auto) Baso # (Auto) Peripher Smr Path Cons PT INR APTT PTT Ratio Sodium 138 Potassium 4.4 Chloride 110 H Carbon Dioxide 22 Anion Gap 6.0 BUN 31 H Creatinine 2.06 H Est Cr Clr Drug Dosing 21.6 Est GFR ( Amer) 32.4 Est GFR (Non-Af Amer) 27.9 BUN/Creatinine Ratio 15.2 Glucose 141 H POC Glucose Calcium 8.0 L Magnesium Iron TIBC Transferrin Ferritin Total Bilirubin AST ALT Alkaline Phosphatase POC Troponin I Troponin I 0.245 H* Total Protein Albumin Globulin Albumin/Globulin Ratio Triglycerides 51 Cholesterol 85 LDL Cholesterol, Calc 43 VLDL Cholesterol, Calc 10 HDL Cholesterol 32 Cholesterol/HDL Ratio 3 Vitamin B12 Folate TSH Urine Color Urine Appearance Urine pH Ur Specific [place] Urine Protein Urine Glucose (UA) Urine Ketones Urine Blood Urine Nitrite Urine Bilirubin Urine Urobilinogen Ur Leukocyte Esterase Urine WBC (Auto) Urine RBC (Auto) U Hyaline Cast (Auto) U Epithel Cells (Auto) Urine Bacteria (Auto) Granular Casts Urine Mucus Urine Yeast Anaplasma Smear Lyme Disease IgM Ab Negative Influenza Type A (PCR) Influenza Type B (PCR) 08/30/19 08/30/19 08/30/19 03:05 05:22 07:11 WBC RBC Hgb Hct MCV MCH MCHC RDW Std Deviation RDW Coeff of Satish Plt Count MPV Immature Gran % (Auto) Neut % (Auto) Lymph % (Auto) [place] % (Auto) Eos % (Auto) Baso % (Auto) Immature Gran # (Auto) Neut # (Auto) Lymph # (Auto) [place] # (Auto) Eos # (Auto) Baso # (Auto) Peripher [facility] Path Cons PT INR APTT > 139.0 H* 125.2 H* 66.1 H* PTT Ratio > 5.1 4.6 2.4 Sodium Potassium Chloride Carbon Dioxide Anion Gap BUN Creatinine Est Cr Clr Drug Dosing Est GFR ( Amer) Est GFR (Non-Af Amer) BUN/Creatinine Ratio Glucose POC Glucose Calcium Magnesium Iron TIBC Transferrin Ferritin Total Bilirubin AST ALT Alkaline Phosphatase POC Troponin I Troponin I Total Protein Albumin Globulin Albumin/Globulin Ratio Triglycerides Cholesterol LDL Cholesterol, Calc VLDL Cholesterol, Calc HDL Cholesterol Cholesterol/HDL Ratio Vitamin B12 Folate TSH Urine Color Urine Appearance Urine pH Ur Specific [place] Urine Protein Urine Glucose (UA) Urine Ketones Urine Blood Urine Nitrite Urine Bilirubin Urine Urobilinogen Ur Leukocyte Esterase Urine WBC (Auto) Urine RBC (Auto) U Hyaline Cast (Auto) U Epithel Cells (Auto) Urine Bacteria (Auto) Granular Casts Urine Mucus Urine Yeast Anaplasma Smear Lyme Disease IgM Ab Influenza Type A (PCR) Influenza Type B (PCR) 08/30/19 08/31/19 08/31/19 13:47 06:40 06:40 WBC 1.90 L RBC 2.77 L Hgb 9.5 L Hct 27.3 L MCV 98.6 MCH 34.3 H MCHC 34.8 RDW Std Deviation 48.8 H RDW Coeff of Satish 13.4 Plt Count 90 L MPV 10.4 Immature Gran % (Auto) Neut % (Auto) Lymph % (Auto) [place] % (Auto) Eos % (Auto) Baso % (Auto) Immature Gran # (Auto) Neut # (Auto) Lymph # (Auto) [place] # (Auto) Eos # (Auto) Baso # (Auto) Peripher Smr Path Cons PT INR APTT 115.0 H* PTT Ratio 4.2 Sodium 135 L Potassium 3.9 Chloride 108 H Carbon Dioxide 19 L Anion Gap 8.0 BUN 38 H Creatinine 1.91 H Est Cr Clr Drug Dosing 23.3 Est GFR ( Amer) 35.5 Est GFR (Non-Af Amer) 30.6 BUN/Creatinine Ratio 19.8 Glucose 117 H POC Glucose Calcium 7.9 L Magnesium Iron TIBC Transferrin Ferritin Total Bilirubin AST ALT Alkaline Phosphatase POC Troponin I Troponin I Total Protein Albumin Globulin Albumin/Globulin Ratio Triglycerides Cholesterol LDL Cholesterol, Calc VLDL Cholesterol, Calc HDL Cholesterol Cholesterol/HDL Ratio Vitamin B12 Folate TSH Urine Color Urine Appearance Urine pH Ur Specific [place] Urine Protein Urine Glucose (UA) Urine Ketones Urine Blood Urine Nitrite Urine Bilirubin Urine Urobilinogen Ur Leukocyte Esterase Urine WBC (Auto) Urine RBC (Auto) U Hyaline Cast (Auto) U Epithel Cells (Auto) Urine Bacteria (Auto) Granular Casts Urine Mucus Urine Yeast Anaplasma Smear Lyme Disease IgM Ab Influenza Type A (PCR) Influenza Type B (PCR) 08/31/19 08/31/19 08/31/19 06:40 06:40 13:24 WBC RBC Hgb Hct MCV MCH MCHC RDW Std Deviation RDW Coeff of Satish Plt Count MPV Immature Gran % (Auto) Neut % (Auto) Lymph % (Auto) [place] % (Auto) Eos % (Auto) Baso % (Auto) Immature Gran # (Auto) Neut # (Auto) Lymph # (Auto) [place] # (Auto) Eos # (Auto) Baso # (Auto) Peripher Smr Path Cons PT INR APTT PTT Ratio Sodium Potassium Chloride Carbon Dioxide Anion Gap BUN Creatinine Est Cr Clr Drug Dosing Est GFR ( Amer) Est GFR (Non-Af Amer) BUN/Creatinine Ratio Glucose POC Glucose 145 H Calcium Magnesium Iron 18 L TIBC 152 L Transferrin 118 L Ferritin 1910.3 H Total Bilirubin AST ALT Alkaline Phosphatase POC Troponin I Troponin I Total Protein Albumin Globulin Albumin/Globulin Ratio Triglycerides Cholesterol LDL Cholesterol, Calc VLDL Cholesterol, Calc HDL Cholesterol Cholesterol/HDL Ratio Vitamin B12 Folate TSH Urine Color Urine Appearance Urine pH Ur Specific [place] Urine Protein Urine Glucose (UA) Urine Ketones Urine Blood Urine Nitrite Urine Bilirubin Urine Urobilinogen Ur Leukocyte Esterase Urine WBC (Auto) Urine RBC (Auto) U Hyaline Cast (Auto) U Epithel Cells (Auto) Urine Bacteria (Auto) Granular Casts Urine Mucus Urine Yeast Anaplasma Smear See Comment Lyme Disease IgM Ab Influenza Type A (PCR) Influenza Type B (PCR) 08/31/19 09/01/19 09/01/19 15:23 06:13 06:17 WBC 2.00 L RBC 2.92 L Hgb 10.1 L Hct 28.9 L MCV 99.0 MCH 34.6 H MCHC 34.9 RDW Std Deviation 48.4 H RDW Coeff of Satish 13.4 Plt Count 73 L MPV 11.0 H Immature Gran % (Auto) 0.5 Neut % (Auto) 64.5 Lymph % (Auto) 24.0 [place] % (Auto) 10.0 Eos % (Auto) 0.0 Baso % (Auto) 1.0 Immature Gran # (Auto) 0.01 Neut # (Auto) 1.29 L Lymph # (Auto) 0.48 L [place] # (Auto) 0.20 Eos # (Auto) 0.00 Baso # (Auto) 0.02 Peripher Smr Path Cons PT INR APTT PTT Ratio Sodium Potassium Chloride Carbon Dioxide Anion Gap BUN Creatinine Est Cr Clr Drug Dosing Est GFR ( Amer) Est GFR (Non-Af Amer) BUN/Creatinine Ratio Glucose POC Glucose Calcium Magnesium Iron TIBC Transferrin Ferritin Total Bilirubin AST ALT Alkaline Phosphatase POC Troponin I Troponin I Total Protein Albumin Globulin Albumin/Globulin Ratio Triglycerides Cholesterol LDL Cholesterol, Calc VLDL Cholesterol, Calc HDL Cholesterol Cholesterol/HDL Ratio Vitamin B12 659 Folate 18.24 TSH Urine Color Urine Appearance Urine pH Ur Specific [place] Urine Protein Urine Glucose (UA) Urine Ketones Urine Blood Urine Nitrite Urine Bilirubin Urine Urobilinogen Ur Leukocyte Esterase Urine WBC (Auto) Urine RBC (Auto) U Hyaline Cast (Auto) U Epithel Cells (Auto) Urine Bacteria (Auto) Granular Casts Urine Mucus Urine Yeast Anaplasma Smear Lyme Disease IgM Ab Influenza Type A (PCR) Influenza Type B (PCR) 09/01/19 06:17 WBC RBC Hgb Hct MCV MCH MCHC RDW Std Deviation RDW Coeff of Satish Plt Count MPV Immature Gran % (Auto) Neut % (Auto) Lymph % (Auto) [place] % (Auto) Eos % (Auto) Baso % (Auto) Immature Gran # (Auto) Neut # (Auto) Lymph # (Auto) [place] # (Auto) Eos # (Auto) Baso # (Auto) Peripher Smr Path Cons PT INR APTT PTT Ratio Sodium 136 Potassium 4.0 Chloride 109 H Carbon Dioxide 19 L Anion Gap 8.0 BUN 37 H Creatinine 1.83 H Est Cr Clr Drug Dosing 24.3 Est GFR ( Amer) 37.3 Est GFR (Non-Af Amer) 32.2 BUN/Creatinine Ratio 19.9 Glucose 115 H POC Glucose Calcium 7.8 L Magnesium Iron TIBC Transferrin Ferritin Total Bilirubin AST ALT Alkaline Phosphatase POC Troponin I Troponin I Total Protein Albumin Globulin Albumin/Globulin Ratio Triglycerides Cholesterol LDL Cholesterol, Calc VLDL Cholesterol, Calc HDL Cholesterol Cholesterol/HDL Ratio Vitamin B12 Folate TSH Urine Color Urine Appearance Urine pH Ur Specific [place] Urine Protein Urine Glucose (UA) Urine Ketones Urine Blood Urine Nitrite Urine Bilirubin Urine Urobilinogen Ur Leukocyte Esterase Urine WBC (Auto) Urine RBC (Auto) U Hyaline Cast (Auto) U Epithel Cells (Auto) Urine Bacteria (Auto) Granular Casts Urine Mucus Urine Yeast Anaplasma Smear Lyme Disease IgM Ab Influenza Type A (PCR) Influenza Type B (PCR)
--- NOTE | 2019-09-01 15:16 | Ultrasound Report ---
US venous doppler LE BI HISTORY: Pain. Edema. r/o DVT COMPARISON STUDY: 08/29/2019 FINDINGS: There is normal compressibility, flow, and augmentation within the bilateral lower extremit y deep venous systems. IMPRESSION: No DVT within the right or left lower extremity. No change from the prior study. The above report was generated using voice recognition software. It may contain grammatical, syntax or spelling errors. Electronically signed by: Keyshawn Bean M.D. 09/01/2019 3:14 PM
[2019-09-01] MEDS: POLYETHYLENE (MIRALAX) 17 GM PACK PO PRN (16:33)
[2019-09-01] MEDS: cefTRIAXone SODIUM 2,000 MG in DEXTROSE 5% 50 ML IV SCH (17:03)
[2019-09-01] MEDS: GABAPENTIN 300 MG CAP PO SCH (21:02)
[2019-09-01] MEDS: ATORVASTATIN 40 MG TAB PO SCH (21:02)
[2019-09-02] MEDS: SODIUM CHLORIDE 0.9% 1000ML 1,000 ML IV SCH ×2 (03:47→16:00)
[2019-09-02 05:47] LABS: Hematocrit (blood only) 29.9 % (42-52); Hemoglobin 10.5 g/dL (14.0-18.0); Mean Corpuscular Hgb Conc 35.1 g/dL (32-36); Mean Corpuscular Volume 96.8 fL (80-100); RDW Coefficient of Variation 13.3 % (11.5-14.5); Red Blood Count 3.09 M/uL (4.7-6.1); White Blood Count 2.82 K/uL (4.8-10.8)
[2019-09-02 05:49] LABS: Mean Platelet Volume 11.2 fL (7.4-10.4); Platelet Count 66 K/uL (130-400)
[2019-09-02 06:18] LABS: BUN Creatinine Ratio 19.8 (10-20); Calcium 7.8 mg/dl (8.5-10.1); Creatinine Clr Calc Pharmacy 26.3 ml/min; Est GFR (African American) 41.1; Est GFR (Non-African American) 35.5; Potassium 3.9 mmol/L (3.5-5.1)
[2019-09-02 06:24] LABS: Basophils # (auto) 0.04 K/uL (0-0.2); Basophils % (auto) 1.4 %; Echinocytes 1+; Eosinophils # (auto) 0.01 K/uL (0-0.5); Eosinophils % (auto) 0.4 %; Immature Granulocytes # (auto) 0.01 K/uL (0.00-0.02); Immature Granulocytes % (auto) 0.4 %; Lymphocytes # (auto) 0.76 K/uL (1.2-3.4); Monocytes # (auto) 0.37 K/uL (0.11-0.59); Monocytes % (auto) 13.1 %; Neutrophils # (auto) 1.63 K/uL (1.4-6.5); Neutrophils % (auto) 57.7 %; Ovalocytes 1+
[2019-09-02] MEDS: ASPIRIN 81 MG ECTAB PO SCH (08:02)
[2019-09-02] MEDS: FERROUS SULFATE 325 MG TAB PO SCH ×2 (08:03→20:24)
[2019-09-02] MEDS: FOLIC ACID 1 MG TAB PO SCH (08:03)
[2019-09-02] MEDS: METOPROLOL TARTRATE 25 MG TAB PO SCH ×2 (08:03→20:25)
[2019-09-02] MEDS: AMLODIPINE BESYLATE 5 MG TAB PO SCH (08:04)
[2019-09-02] MEDS: lisinopriL 10 MG TAB PO SCH (08:05)
[2019-09-02] MEDS: PANTOprazole 40 MG TAB PO SCH (08:05)
[2019-09-02] MEDS: CYANOCOBALAMIN 500 MCG TABLET (VITAMIN B-12) PO SCH (08:05)
[2019-09-02] MEDS: POLYETHYLENE (MIRALAX) 17 GM PACK PO PRN (08:08)
[2019-09-02 08:29] LABS: Albumin Level 2.6 gm/dl (3.4-5.0); Bilirubin Direct 0.2 mg/dl (0-0.2); Bilirubin,Total 0.8 mg/dl (0.2-1); Total Protein 5.2 gm/dl (6.4-8.2)
[2019-09-02 09:05] LABS: 18KDIGG Band NONREACTIVE (NONREACTIVE); 23KDIGG Band REACTIVE (NONREACTIVE); 23KDIGM Band NONREACTIVE (NONREACTIVE); 28KDIGG Band NONREACTIVE (NONREACTIVE); 30KDIGG Band NONREACTIVE (NONREACTIVE); 39KDIGG Band NONREACTIVE (NONREACTIVE); 39KDIGM Band NONREACTIVE (NONREACTIVE); 41KDIGG Band REACTIVE (NONREACTIVE); 41KDIGM Band NONREACTIVE (NONREACTIVE); 45KDIGG Band NONREACTIVE (NONREACTIVE); 58KDIGG Band NONREACTIVE (NONREACTIVE); 66KDIGG Band NONREACTIVE (NONREACTIVE); 93KDIGG Band NONREACTIVE (NONREACTIVE); Lyme Antibodies, WB IgG NEGATIVE (NEGATIVE); Lyme Antibodies, WB IgM NEGATIVE (NEGATIVE)
[2019-09-02 10:43] LABS: Giant Platelets 1+
--- NOTE | 2019-09-02 13:57 | Cardiology Progress Note ---
Date of Service September 02, 2019 Assessment & Plan (1) Elevated troponin: (2) Generalized weakness: (3) CKD (chronic kidney disease) stage 4, GFR 15-29 ml/min: (4) CAD (coronary artery disease): (5) Pancytopenia: (6) Atrial fibrillation: The patient is in a rate controlled asymptomatic atrial fibrillation. I think conservative management is indicated. Patient will remain on his beta- letty and aspirin. I do not believe that he is a good candidate for anticoagulation at this time. Subjective The patient is resting comfortably in the chair. He has developed rate controlled atrial fibrillation which is asymptomatic. Review of Systems Review of Systems: Unobtainable due to cognitive status Physical Exam 2 Physical Exam: General: no acute distress and stated age Head: normocephalic, no masses, lesions, tenderness or abnormalities Eyes: conjunctiva are pink and non-injected, sclera clear Neck: supple, no adenopathy, no bruits, normal jugular venous pulse, no hepatojugular reflux Chest: normal shape and normal respiratory effort Lungs: clear to auscultation and percussion Cardiac Exam: - regular rate & rhythm, no murmurs gallops or rubs - normal S1, normal S2 Pulses: 2(+) throughout Abdomen: abdomen soft, non-tender, no abnormal masses and no hepatosplenomegaly Musculoskeletal: no gait disturbance, no joint inflammation, no deforming arthritis Extremities: no edema and no cyanosis Neuro: grossly normal exam Results & Data Vital Signs (Past 12 Hours) Vital Signs Temp Pulse Pulse Resp BP BP Pulse Ox 09/02/19 11:15 36.7 C 76 23 118/58 L 96 09/02/19 08:00 82 09/02/19 07:58 36.8 C 83 26 H 147/80 H 94 09/02/19 03:23 37.2 C 73 20 140/60 97 Laboratory Results Laboratory Results - last 24 hr 08/30/19 08/31/19 09/01/19 01:47 15:23 06:17 WBC RBC Hgb Hct MCV MCH MCHC RDW Std Deviation RDW Coeff of Satish Plt Count MPV Immature Gran % (Auto) Neut % (Auto) Lymph % (Auto) [place] % (Auto) Eos % (Auto) Baso % (Auto) Immature Gran # (Auto) Neut # (Auto) Lymph # (Auto) [place] # (Auto) Eos # (Auto) Baso # (Auto) Hyposegmented Neuts 2+ Giant Platelets 1+ Ovalocytes Echinocytes Sodium Potassium Chloride Carbon Dioxide Anion Gap BUN Creatinine Est Cr Clr Drug Dosing Est GFR ( Amer) Est GFR (Non-Af Amer) BUN/Creatinine Ratio Glucose POC Glucose Calcium Total Bilirubin Direct Bilirubin AST ALT Alkaline Phosphatase Total Protein Albumin A. phagocytophilum DNA Detected A Lyme IgG (Western Blot) NEGATIVE Lyme IgG 18 kDa Band NONREACTIVE Lyme IgG 23 kDa Band REACTIVE A Lyme IgG 28 kDa Band NONREACTIVE Lyme IgG 30 kDa Band NONREACTIVE Lyme IgG 39 kDa Band NONREACTIVE Lyme IgG 41 kDa Band REACTIVE A Lyme IgG 45 kDa Band NONREACTIVE Lyme IgG 58 kDa Band NONREACTIVE Lyme IgG 66 kDa Band NONREACTIVE Lyme IgG 93 kDa Band NONREACTIVE Lyme IgM (Western Blot) NEGATIVE Lyme IgM 23 kDa Band NONREACTIVE Lyme IgM 39 kDa Band NONREACTIVE Lyme IgM 41 kDa Band NONREACTIVE 09/01/19 09/02/19 09/02/19 20:19 05:22 05:22 WBC 2.82 L RBC 3.09 L Hgb 10.5 L Hct 29.9 L MCV 96.8 MCH 34.0 MCHC 35.1 RDW Std Deviation 47.0 H RDW Coeff of Satish 13.3 Plt Count 66 L MPV 11.2 H Immature Gran % (Auto) 0.4 Neut % (Auto) 57.7 Lymph % (Auto) 27.0 [place] % (Auto) 13.1 Eos % (Auto) 0.4 Baso % (Auto) 1.4 Immature Gran # (Auto) 0.01 Neut # (Auto) 1.63 Lymph # (Auto) 0.76 L [place] # (Auto) 0.37 Eos # (Auto) 0.01 Baso # (Auto) 0.04 Hyposegmented Neuts Giant Platelets Ovalocytes 1+ Echinocytes 1+ Sodium 136 Potassium 3.9 Chloride 110 H Carbon Dioxide 20 L Anion Gap 7.0 BUN 34 H Creatinine 1.69 H Est Cr Clr Drug Dosing 26.3 Est GFR ( Amer) 41.1 Est GFR (Non-Af Amer) 35.5 BUN/Creatinine Ratio 19.8 Glucose 124 H POC Glucose 141 H Calcium 7.8 L Total Bilirubin Direct Bilirubin AST ALT Alkaline Phosphatase Total Protein Albumin A. phagocytophilum DNA Lyme IgG (Western Blot) Lyme IgG 18 kDa Band Lyme IgG 23 kDa Band Lyme IgG 28 kDa Band Lyme IgG 30 kDa Band Lyme IgG 39 kDa Band Lyme IgG 41 kDa Band Lyme IgG 45 kDa Band Lyme IgG 58 kDa Band Lyme IgG 66 kDa Band Lyme IgG 93 kDa Band Lyme IgM (Western Blot) Lyme IgM 23 kDa Band Lyme IgM 39 kDa Band Lyme IgM 41 kDa Band 09/02/19 05:22 WBC RBC Hgb Hct MCV MCH MCHC RDW Std Deviation RDW Coeff of Satish Plt Count MPV Immature Gran % (Auto) Neut % (Auto) Lymph % (Auto) [place] % (Auto) Eos % (Auto) Baso % (Auto) Immature Gran # (Auto) Neut # (Auto) Lymph # (Auto) [place] # (Auto) Eos # (Auto) Baso # (Auto) Hyposegmented Neuts Giant Platelets Ovalocytes Echinocytes Sodium Potassium Chloride Carbon Dioxide Anion Gap BUN Creatinine Est Cr Clr Drug Dosing Est GFR ( Amer) Est GFR (Non-Af Amer) BUN/Creatinine Ratio Glucose POC Glucose Calcium Total Bilirubin 0.8 Direct Bilirubin 0.2 AST 89 H ALT 67 Alkaline Phosphatase 69 Total Protein 5.2 L Albumin 2.6 L A. phagocytophilum DNA Lyme IgG (Western Blot) Lyme IgG 18 kDa Band Lyme IgG 23 kDa Band Lyme IgG 28 kDa Band Lyme IgG 30 kDa Band Lyme IgG 39 kDa Band Lyme IgG 41 kDa Band Lyme IgG 45 kDa Band Lyme IgG 58 kDa Band Lyme IgG 66 kDa Band Lyme IgG 93 kDa Band Lyme IgM (Western Blot) Lyme IgM 23 kDa Band Lyme IgM 39 kDa Band Lyme IgM 41 kDa Band Medications Administered Current Inpatient Medications Acetaminophen (Tylenol) 650 mg PO Q4H PRN PRN Reason: Pain or Fever Stop: 09/28/19 20:51 Last Admin: 08/31/19 04:14 Dose: 650 mg Documented by: Amlodipine Besylate (Norvasc) 2.5 mg PO DAILY KANDACE Stop: 09/29/19 08:59 Last Admin: 09/02/19 08:04 Dose: 2.5 mg Documented by: Aspirin (Ecotrin Ectab) 81 mg PO DAILY KANDACE Stop: 09/29/19 08:59 Last Admin: 09/02/19 08:02 Dose: 81 mg Documented by: Atorvastatin Calcium (Lipitor) 80 mg PO HS KANDACE Stop: 09/28/19 22:09 Last Admin: 09/01/19 21:02 Dose: 80 mg Documented by: Cyanocobalamin (Vitamin B-12) 1,000 mcg PO DAILY COUNTS INCLUDE 234 BEDS AT THE [facility] Stop: 09/29/19 08:59 Last Admin: 09/02/19 08:05 Dose: 1,000 mcg Documented by: Ferrous Sulfate (Feosol) 325 mg PO BID KANDACE Stop: 09/30/19 20:59 Last Admin: 09/02/19 08:03 Dose: 325 mg Documented by: Folic Acid (Folvite) 1 mg PO QAM COUNTS INCLUDE 234 BEDS AT THE [facility] Stop: 10/01/19 10:44 Last Admin: 09/02/19 08:03 Dose: 1 mg Documented by: Gabapentin (Neurontin) 300 mg PO HS KANDACE Stop: 09/28/19 20:59 Last Admin: 09/01/19 21:02 Dose: 300 mg Documented by: Ceftriaxone Sodium 2,000 mg/ (Dextrose) 70 mls @ 100 mls/hr IV Q24H COUNTS INCLUDE 234 BEDS AT THE [facility]; Protocol Stop: 09/14/19 15:59 Last Infusion: 09/01/19 18:05 Dose: Infused Documented by: Sodium Chloride (Nss 1000ml) 1,000 mls @ 100 mls/hr IV .Q10H COUNTS INCLUDE 234 BEDS AT THE [facility] Stop: 09/30/19 15:14 Last Admin: 09/02/19 03:47 Dose: 100 mls/hr Documented by: Lisinopril (Zestril) 10 mg PO DAILY COUNTS INCLUDE 234 BEDS AT THE [facility] Stop: 09/29/19 08:59 Last Admin: 09/02/19 08:05 Dose: 10 mg Documented by: Metoprolol Tartrate (Lopressor) 12.5 mg PO BID COUNTS INCLUDE 234 BEDS AT THE [facility] Stop: 09/29/19 08:59 Last Admin: 09/02/19 08:03 Dose: 12.5 mg Documented by: Nitroglycerin (Nitrostat) 0.4 mg SL UD PRN PRN Reason: Chest Pain Stop: 09/28/19 20:51 Ondansetron HCl (Zofran) 4 mg IV Q6H PRN PRN Reason: Nausea Stop: 09/28/19 20:51 Pantoprazole Sodium (Protonix) 40 mg PO QAM COUNTS INCLUDE 234 BEDS AT THE [facility] Stop: 10/02/19 08:59 Last Admin: 09/02/19 08:05 Dose: 40 mg Documented by: Polyethylene Glycol (Miralax Powder Packet) 17 gm PO DAILY PRN PRN Reason: Constipation Stop: 09/28/19 20:51 Last Admin: 09/02/19 08:08 Dose: 17 gm Documented by:
[2019-09-02] MEDS: cefTRIAXone SODIUM 2,000 MG in DEXTROSE 5% 50 ML IV SCH (15:34)
--- NOTE | 2019-09-02 17:32 | Hospitalist Progress Note ---
Date of Service September 02, 2019 Assessment & Plan (1) Generalized weakness: (1) Elevated troponin: This is an 89-year-old male with a PMH of CAD ( s/p stent in 2007), dyslipidemia, hypertension, chronic dysphagia with Schatzki's ring, CKD III/IV and other medical problems listed below who presents with progressive shortness of breath and generalized weakness x2 days. 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 The morphologic features of the smear are nonspecific. The patient has a history of cardiac disease and presents with increasing dyspnea. The differential includes infection, nutritional deficiency, drug therapy, primary marrow disorder such as myelodysplasia, aplastic anemia, or marrow replacement by tumor. No anaplasmosis is identified. No overt dysplasia is noted. No malignancy is identified. -- anemia panel ordered (+) iron deficiency Iron supplement ordered -- neutropenia resolved hg stable Plt slightly decreased today, monitor Atrial Fibrillation new onset HR controlled continue Metoprolol and ASA Plt low, not a good candidate for anticoagulation (4) Left inguinal pain: s/p Herniorappy last year - consulted General Surgery ff up as outpatient (5) Dysphagia: history of Schatzi's ring -- GI consulted Speech Therapy consulted -- no EGD for now until infectious process resolves follow Speech Tx recommendations (6) Bilateral lower extremity edema: BLE with 2+ edema. Reports of chronic edema but more pronounced than baseline -No evidence of volume overload on CXR -Venous doppler : negative for DVT -- elevate legs (7) Generalized weakness: - likely from #2 - PT/OT eval (8) CKD (chronic kidney disease) stage 4, GFR 15-29 ml/min: H/o CKD III/IV with baseline Cr ~ 1.7-2 with GFR in high 20s- low30s -- crea 1.8; monitor (9) HTN (hypertension): - added lopressor -Continue home amlodipine, lisinopril (10) Inguinal nodule: Chronic pain in left inguinal region following inguinal hernia surgery with revision -Following with general surgery. June 2019 MRI pelvis wo contrast with focal thickening and edema of the anterior abdominal wall in the left inguinal region. This does not have the appearance of a muscle strain or recurrent hernia and is likely postoperative in nature (11) HLD (hyperlipidemia): Continue statin (12) B12 deficiency: Continue cyanocobalamin DVT px SCDs only in light of thrombocytopenia Disposition may need SNF upon discharge PT/OT evaluation in progress Subjective ff up for fever, pancytopenia seen resting in bedside chair, comfortable alert, oriented x 3, answers all questions appropriately states he feels better today denies headache, chest pain, dyspnea, palpitations, dizziness no abdominal pain tolerating diet well, appetite improved no other symptoms Review of Systems Review of Systems: All systems reviewed & are unremarkable except as noted in HPI & below Physical Exam Physical Exam: General- oriented x 3, not in distress, speaks in sentences with no effort or accessory muscle use Eyes- anicteric Neck- no JVD Lungs- clear breath sounds bilaterally Heart- normal rate, regular rhythm; no murmurs Abdomen- normal bowel sounds, nondistended, soft, nontender Extremities-mild pretibial edema, no calf tenderness Neuro- alert, oriented x 2; no gross focal neurologic deficits Skin- warm & dry Results & Data Vital Signs (Past 12 Hours) Vital Signs Temp Pulse Pulse Resp BP BP Pulse Ox 09/02/19 15:35 37 C 90 22 107/61 95 09/02/19 14:20 79 09/02/19 11:15 36.7 C 76 23 118/58 L 96 09/02/19 08:00 82 09/02/19 07:58 36.8 C 83 26 H 147/80 H 94
[2019-09-02] MEDS: GABAPENTIN 300 MG CAP PO SCH (20:25)
[2019-09-02] MEDS: ATORVASTATIN 40 MG TAB PO SCH (20:25)
[2019-09-03 06:47] LABS: Hematocrit (blood only) 28.1 % (42-52); Hemoglobin 9.9 g/dL (14.0-18.0); Mean Corpuscular Hgb Conc 35.2 g/dL (32-36); Mean Corpuscular Volume 96.6 fL (80-100); RDW Coefficient of Variation 13.2 % (11.5-14.5); RDW Standard Deviation 47.2 fL (36.4-46.3); Red Blood Count 2.91 M/uL (4.7-6.1); White Blood Count 4.79 K/uL (4.8-10.8)
[2019-09-03 06:59] LABS: Mean Platelet Volume 11.2 fL (7.4-10.4); Platelet Count 80 K/uL (130-400)
[2019-09-03 07:10] LABS: Basophils # (auto) 0.04 K/uL (0-0.2); Basophils % (auto) 0.8 %; Echinocytes 1+; Eosinophils # (auto) 0.02 K/uL (0-0.5); Eosinophils % (auto) 0.4 %; Immature Granulocytes # (auto) 0.01 K/uL (0.00-0.02); Immature Granulocytes % (auto) 0.2 %; Lymphocytes # (auto) 1.27 K/uL (1.2-3.4); Lymphocytes % (auto) 26.5 %; Monocytes # (auto) 0.65 K/uL (0.11-0.59); Monocytes % (auto) 13.6 %; Neutrophils % (auto) 58.5 %
[2019-09-03 07:25] LABS: BUN Creatinine Ratio 18.2 (10-20); Calcium 7.8 mg/dl (8.5-10.1); Creatinine Clr Calc Pharmacy 25.9 ml/min; Est GFR (African American) 36.6; Est GFR (Non-African American) 31.6; Potassium 3.9 mmol/L (3.5-5.1)
[2019-09-03] MEDS: ASPIRIN 81 MG ECTAB PO SCH (08:28)
[2019-09-03] MEDS: FOLIC ACID 1 MG TAB PO SCH (08:28)
[2019-09-03] MEDS: AMLODIPINE BESYLATE 5 MG TAB PO SCH (08:28)
[2019-09-03] MEDS: CYANOCOBALAMIN 500 MCG TABLET (VITAMIN B-12) PO SCH (08:29)
[2019-09-03] MEDS: lisinopriL 10 MG TAB PO SCH (08:29)
[2019-09-03] MEDS: FERROUS SULFATE 325 MG TAB PO SCH ×2 (08:29→21:31)
[2019-09-03] MEDS: METOPROLOL TARTRATE 25 MG TAB PO SCH ×2 (08:30→21:31)
[2019-09-03] MEDS: PANTOprazole 40 MG TAB PO SCH (08:30)
[2019-09-03] MEDS: POLYETHYLENE (MIRALAX) 17 GM PACK PO PRN (08:34)
[2019-09-03] MEDS: cefTRIAXone SODIUM 2,000 MG in DEXTROSE 5% 50 ML IV SCH (16:16)
--- NOTE | 2019-09-03 20:12 | Hospitalist Progress Note ---
Date of Service September 03, 2019 Assessment & Plan (1) Generalized weakness: (1) Elevated troponin: This is an 89-year-old male with a PMH of CAD ( s/p stent in 2007), dyslipidemia, hypertension, chronic dysphagia with Schatzki's ring, CKD III/IV and other medical problems listed below who presents with progressive shortness of breath and generalized weakness x2 days. 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 The morphologic features of the smear are nonspecific. The patient has a history of cardiac disease and presents with increasing dyspnea. The differential includes infection, nutritional deficiency, drug therapy, primary marrow disorder such as myelodysplasia, aplastic anemia, or marrow replacement by tumor. No anaplasmosis is identified. No overt dysplasia is noted. No malignancy is identified. -- anemia panel ordered (+) iron deficiency Iron supplement ordered -- neutropenia resolved hg stable Plt improving Atrial Fibrillation new onset HR controlled continue Metoprolol and ASA Plt low, not a good candidate for anticoagulation (4) Left inguinal pain: s/p Herniorappy last year - consulted General Surgery ff up as outpatient (5) Dysphagia: history of Schatzi's ring -- GI consulted Speech Therapy consulted -- no EGD for now until infectious process resolves follow Speech Tx recommendations (6) Bilateral lower extremity edema: BLE with 2+ edema. Reports of chronic edema but more pronounced than baseline -No evidence of volume overload on CXR -Venous doppler : negative for DVT -- elevate legs (7) Generalized weakness: - likely from #2 - PT/OT eval (8) CKD (chronic kidney disease) stage 4, GFR 15-29 ml/min: H/o CKD III/IV with baseline Cr ~ 1.7-2 with GFR in high 20s- low30s -- crea 1.8; monitor (9) HTN (hypertension): - added lopressor -Continue home amlodipine, lisinopril (10) Inguinal nodule: Chronic pain in left inguinal region following inguinal hernia surgery with revision -Following with general surgery. June 2019 MRI pelvis wo contrast with focal thickening and edema of the anterior abdominal wall in the left inguinal region. This does not have the appearance of a muscle strain or recurrent hernia and is likely postoperative in nature (11) HLD (hyperlipidemia): Continue statin (12) B12 deficiency: Continue cyanocobalamin DVT px SCDs only in light of thrombocytopenia Disposition possible d/c home tomorrow Subjective ff up for Anaplasmosis seen resting in bed, comfortable in good spirits brighter, alert, oriented x 3 states he feels improved than yesterday less weak better appetite no chest pain, palpitations, dizziness no other symptoms Review of Systems Review of Systems: All systems reviewed & are unremarkable except as noted in HPI & below Physical Exam Physical Exam: General- oriented x 3, not in distress, speaks in sentences with no effort or accessory muscle use Eyes- anicteric Neck- no JVD Lungs- clear breath sounds bilaterally Heart- normal rate, irregularly irregular rhythm; no murmurs Abdomen- normal bowel sounds, nondistended, soft, nontender Extremities- no pretibial edema, no calf tenderness Neuro- alert, oriented x 3; no gross focal neurologic deficits Skin- warm & dry Results & Data Vital Signs (Past 12 Hours) Vital Signs Temp Pulse Pulse Resp BP BP Pulse Ox 09/03/19 19:26 37.1 C 76 19 119/55 L 93 09/03/19 15:15 37.1 C 80 19 133/57 L 95 09/03/19 14:20 66 09/03/19 13:51 97 09/03/19 11:30 36.6 C 63 16 112/57 L 97 09/03/19 08:19 36.4 C L 92 H 22 155/72 H 96 Laboratory Results Laboratory Results - last 24 hr 09/03/19 09/03/19 06:20 06:20 WBC 4.79 L RBC 2.91 L Hgb 9.9 L Hct 28.1 L MCV 96.6 MCH 34.0 MCHC 35.2 RDW Std Deviation 47.2 H RDW Coeff of Satish 13.2 Plt Count 80 L MPV 11.2 H Immature Gran % (Auto) 0.2 Neut % (Auto) 58.5 Lymph % (Auto) 26.5 [place] % (Auto) 13.6 Eos % (Auto) 0.4 Baso % (Auto) 0.8 Immature Gran # (Auto) 0.01 Neut # (Auto) 2.80 Lymph # (Auto) 1.27 [place] # (Auto) 0.65 H Eos # (Auto) 0.02 Baso # (Auto) 0.04 Echinocytes 1+ Sodium 136 Potassium 3.9 Chloride 109 H Carbon Dioxide 20 L Anion Gap 7.0 BUN 34 H Creatinine 1.86 H Est Cr Clr Drug Dosing 25.9 Est GFR ( Amer) 36.6 Est GFR (Non-Af Amer) 31.6 BUN/Creatinine Ratio 18.2 Glucose 127 H Calcium 7.8 L
[2019-09-03] MEDS: GABAPENTIN 300 MG CAP PO SCH (21:31)
[2019-09-03] MEDS: ATORVASTATIN 40 MG TAB PO SCH (21:32)
[2019-09-04 06:23] LABS: Hematocrit (blood only) 29.8 % (42-52); Hemoglobin 10.2 g/dL (14.0-18.0); Mean Corpuscular Hemoglobin 33.7 pg (25-34); Mean Corpuscular Hgb Conc 34.2 g/dL (32-36); Mean Corpuscular Volume 98.3 fL (80-100); Platelet Count 123 K/uL (130-400); RDW Coefficient of Variation 13.6 % (11.5-14.5); RDW Standard Deviation 48.6 fL (36.4-46.3); Red Blood Count 3.03 M/uL (4.7-6.1); White Blood Count 5.37 K/uL (4.8-10.8)
[2019-09-04 06:39] LABS: Basophils # (auto) 0.04 K/uL (0-0.2); Basophils % (auto) 0.7 %; Eosinophils # (auto) 0.05 K/uL (0-0.5); Eosinophils % (auto) 0.9 %; Immature Granulocytes # (auto) 0.01 K/uL (0.00-0.02); Immature Granulocytes % (auto) 0.2 %; Lymphocytes # (auto) 1.21 K/uL (1.2-3.4); Lymphocytes % (auto) 22.5 %; Monocytes # (auto) 0.65 K/uL (0.11-0.59); Monocytes % (auto) 12.1 %; Neutrophils # (auto) 3.41 K/uL (1.4-6.5); Neutrophils % (auto) 63.6 %
[2019-09-04 06:40] LABS: BUN Creatinine Ratio 18.3 (10-20); Calcium 7.8 mg/dl (8.5-10.1); Est GFR (African American) 33.3; Est GFR (Non-African American) 28.8; Potassium 4.1 mmol/L (3.5-5.1)
[2019-09-04] MEDS: AMLODIPINE BESYLATE 5 MG TAB PO SCH (08:08)
[2019-09-04] MEDS: FERROUS SULFATE 325 MG TAB PO SCH (08:08)
[2019-09-04] MEDS: METOPROLOL TARTRATE 25 MG TAB PO SCH (08:08)
[2019-09-04] MEDS: CYANOCOBALAMIN 500 MCG TABLET (VITAMIN B-12) PO SCH (08:09)
[2019-09-04] MEDS: lisinopriL 10 MG TAB PO SCH (08:09)
[2019-09-04] MEDS: ASPIRIN 81 MG ECTAB PO SCH (08:09)
[2019-09-04] MEDS: FOLIC ACID 1 MG TAB PO SCH (08:09)
[2019-09-04] MEDS: PANTOprazole 40 MG TAB PO SCH (08:09)
[2019-09-04] MEDS ORDERED: DOXYCYCLINE HYCLATE 100 MG CAP PO SCH ×2 (09:00→10:00)
--- NOTE | 2019-09-04 11:42 | Hospitalist Progress Note ---
Date of Service September 04, 2019 Assessment & Plan (1) Generalized weakness: This is an 89-year-old male with a PMH of CAD ( s/p stent in 2007), dyslipidemia, hypertension, chronic dysphagia with Schatzki's ring, CKD III/IV and other medical problems listed below who presents with progressive shortness of breath and generalized weakness x2 days. ANAPLASMOSIS blood cultures negative CXR no pneumonia Anaplasmosis DNA : (+) Positive Lyme IgM negative, Western blot negative -- received 4 days of Ceftriaxone 2g IV -- patient clinically improved CBC trended down, then improved -- on discharge, WBC 5.37, Hg 10.2, Plt 123 -- transition to PO Doxycycline 100mg BID x 7 more days Pancytopenia: -- secoondary to Anaplasmosis Peripheral smear noted The CBC shows pancytopenia with WBC 3.28, H/H 10.4/30.5 and PLT 112 . The morphologic features of the smear are nonspecific. The patient has a history of cardiac disease and presents with increasing dyspnea. The differential includes infection, nutritional deficiency, drug therapy, primary marrow disorder such as myelodysplasia, aplastic anemia, or marrow replacement by tumor. No anaplasmosis is identified. No overt dysplasia is noted. No malignancy is identified. -- anemia panel ordered (+) iron deficiency- Fe: 18 Iron supplement ordered -- CBC trended down, then improved -- neutropenia resolved hg stable Plt improving -- repeat CBC on ff up with PCP this week further work up of iron deficiency anemia as outpatient Elevated troponin: -H/o CAD with stent to LAD in 2007, presented with left arm numbness ECHO shows : normal LV ejection function , no wall motion abnormality Acute coronary syndrome ruled out Atrial Fibrillation new onset Noted on telemetry while admitted HR controlled Dr. 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 Reports of chronic edema but more pronounced than baseline -No evidence of volume overload on CXR -Venous doppler : negative for DVT -- elevate legs Generalized weakness: - likely from #2 - PT/OT eval: recommend d/c to home CKD (chronic kidney disease) stage 4, GFR 15-29 ml/min: H/o CKD III/IV with baseline Cr ~ 1.7-2 with GFR in high 20s- low30s -- crea 2.01 -- repeat BMP on ff up with PCP this week HTN (hypertension): -Continue home amlodipine, lisinopril HLD (hyperlipidemia): Continue statin B12 deficiency: Continue cyanocobalamin Disposition d/c home ff up with PCP and [employer] as outlined in DC instructions Plan of care discussed with patient and his family- and daughter at the bedside in detail All questions answered They are comfortable, understanding, agreeable with the plan of care Subjective ff up for anaplasmosis, a fib seen resting in bedside chair, comfortable states he feels fine overall denies palpitations, dizziness, dyspnea, chest pain no pain denies other symptoms re-assessed in the afternoon, with patient's and daughter at bedside states he is ready for discharge Review of Systems Review of Systems: All systems reviewed & are unremarkable except as noted in HPI & below Physical Exam Physical Exam: General- oriented x 3, not in distress, speaks in sentences with no effort or accessory muscle use Eyes- anicteric Neck- no JVD Lungs- clear breath sounds bilaterally no crackles no wheezing Heart- normal rate, regular rhythm; no murmurs Abdomen- normal bowel sounds, nondistended, soft, nontender Extremities- no pretibial edema, no calf tenderness Neuro- alert, oriented x 3; no gross focal neurologic deficits Skin- warm & dry Results & Data Vital Signs (Past 12 Hours) Vital Signs Temp Pulse Resp BP Pulse Ox 09/04/19 07:25 37.3 C 82 18 148/87 H 93 09/04/19 02:31 36.8 C 87 16 132/67 93 Laboratory Results Laboratory Results - last 24 hr 09/04/19 09/04/19 05:59 05:59 WBC 5.37 RBC 3.03 L Hgb 10.2 L Hct 29.8 L MCV 98.3 MCH 33.7 MCHC 34.2 RDW Std Deviation 48.6 H RDW Coeff of Satish 13.6 Plt Count 123 L D MPV 11.0 H Immature Gran % (Auto) 0.2 Neut % (Auto) 63.6 Lymph % (Auto) 22.5 [place] % (Auto) 12.1 Eos % (Auto) 0.9 Baso % (Auto) 0.7 Immature Gran # (Auto) 0.01 Neut # (Auto) 3.41 Lymph # (Auto) 1.21 [place] # (Auto) 0.65 H Eos # (Auto) 0.05 Baso # (Auto) 0.04 Sodium 136 Potassium 4.1 Chloride 109 H Carbon Dioxide 21 Anion Gap 6.0 BUN 37 H Creatinine 2.01 H Est Cr Clr Drug Dosing 24.0 Est GFR ( Amer) 33.3 Est GFR (Non-Af Amer) 28.8 BUN/Creatinine Ratio 18.3 Glucose 125 H Calcium 7.8 L
--- NOTE | 2019-09-04 15:31 | Discharge Summary ---
Date of Service September 04, 2019 Admission HPI Per Admitting Provider This is an 89-year-old male with a PMH of CAD ( s/p stent in 2007), dyslipidemia, hypertension, chronic dysphagia with Schatzki's ring, CKD III/IV and other medical problems listed below who presents with progressive shortness of breath and generalized weakness x2 days. Patient has felt short of breath for the past few weeks but it is progressed the past few days to where he feels short of breath even at rest. Family notes they can hear him breathing heavily even when sitting in his chair. Also has had decreased appetite and p.o. intake. States that the only food he is really had in the past few days a cer eal and Mountain Dew. Had difficulty getting out of his chair today, which prompted family bring him to ED for further evaluation. Denies any recent falls. Currently, patient feels fatigued, short of breath and generally weak. Denies any lightheadedness, visual changes, chest pain or palpitations. No fever, chills, cough or wheezing. Notes that first 3 fingers on left hand have been numb for the past 2 weeks. Has history of CAD with stent to LAD in 2007. During that catheterization, was also noted to have mild nonobstructive disease to proximal left main, PDA, proximal left circumflex and ostial LAD. 2D echo from Dec 2016 with normal left ventricular cavity size, no left ventricular wall motion abnormality, preserved EF of 57% and mildly sclerotic mitral valve leaflets with mild mitral regurg present. In the ED, patient found to be afebrile and hemodynamically stable. Chest x-ray with cardiomegaly and suspected emphysema with no acute cardiopulmonary abnormalities identified. EKG was sinus rhythm with PACs, LVH and T wave inversions in leads I and V3-V6. Initial troponin of 0.228. Was given aspirin 324 mg and started on IV heparin by ED physician. Admission Exam Per Admitting Provider General- oriented x 3, not in distress, speaks in sentences with no effort or accessory muscle use Eyes- anicteric Neck- no JVD Lungs- clear breath sounds bilaterally Heart- normal rate, irregularly irregular rhythm; no murmurs Abdomen- normal bowel sounds, nondistended, soft, nontender Extremities- no pretibial edema, no calf tenderness Neuro- alert, oriented x 3; no gross focal neurologic deficits Skin- warm & dry Principal Diagnosis ANAPLASMOSIS, ATRIAL FIBRILLATION-NEW ONSET Discharge Exam General- oriented x 3, not in distress, speaks in sentences with no effort or accessory muscle use Eyes- anicteric Neck- no JVD Lungs- clear breath sounds bilaterally no crackles no wheezing Heart- normal rate, regular rhythm; no murmurs Abdomen- normal bowel sounds, nondistended, soft, nontender Extremities- no pretibial edema, no calf tenderness Neuro- alert, oriented x 3; no gross focal neurologic deficits Skin- warm & dry Discharge Data Allergies Allergy/AdvReac Type Severity Reaction Status Date / Time No Known Allergies Allergy Verified 08/29/19 17:57 Consultations 08/29/19 20:22 ED Decision to Admit Stat 08/29/19 20:52 Consult Case Management - Discharge Planning Routine 08/30/19 07:00 Consult Cardiology Routine 08/31/19 15:07 Consult Gastroenterology Routine Consult General Surgery Routine 09/01/19 10:15 Consult Hematology Routine Ordered Studies 08/29/19 21:03 US venous doppler LE BI Routine 09/01/19 13:45 US venous doppler LE BI Stat Hospital Course (1) Generalized weakness: This is an 89-year-old male with a PMH of CAD ( s/p stent in 2007), dyslipidemia, hypertension, chronic dysphagia with Schatzki's ring, CKD III/IV and other medical problems listed below who presents with progressive shortness of breath and generalized weakness x2 days. ANAPLASMOSIS blood cultures negative CXR no pneumonia Anaplasmosis DNA : (+) Positive Lyme IgM negative, Western blot negative -- received 4 days of Ceftriaxone 2g IV -- patient clinically improved CBC trended down, then improved -- on discharge, WBC 5.37, Hg 10.2, Plt 123 -- transition to PO Doxycycline 100mg BID x 7 more days Pancytopenia: -- secoondary to Anaplasmosis Peripheral smear noted The CBC shows pancytopenia with WBC 3.28, H/H 10.4/30.5 and PLT 112 . The morphologic features of the smear are nonspecific. The patient has a history of cardiac disease and presents with increasing dyspnea. The differential includes infection, nutritional deficiency, drug therapy, primary marrow disorder such as myelodysplasia, aplastic anemia, or marrow replacement by tumor. No anaplasmosis is identified. No overt dysplasia is noted. No malignancy is identified. -- anemia panel ordered (+) iron deficiency- Fe: 18 Iron supplement ordered -- CBC trended down, then improved -- neutropenia resolved hg stable Plt improving -- repeat CBC on ff up with PCP this week further work up of iron deficiency anemia as outpatient Elevated troponin: -H/o CAD with stent to LAD in 2007, presented with left arm numbness ECHO shows : normal LV ejection function , no wall motion abnormality Acute coronary syndrome ruled out Atrial Fibrillation new onset Noted on telemetry while admitted HR controlled Dr. 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 Reports of chronic edema but more pronounced than baseline -No evidence of volume overload on CXR -Venous doppler : negative for DVT -- elevate legs Generalized weakness: - likely from #2 - PT/OT eval: recommend d/c to home CKD (chronic kidney disease) stage 4, GFR 15-29 ml/min: H/o CKD III/IV with baseline Cr ~ 1.7-2 with GFR in high 20s- low30s -- crea 2.01 -- repeat BMP on ff up with PCP this week HTN (hypertension): -Continue home amlodipine, lisinopril HLD (hyperlipidemia): Continue statin B12 deficiency: Continue cyanocobalamin Disposition d/c home ff up with PCP and [facility] as outlined in DC instructions Plan of care discussed with patient and his family- and daughter at the bedside in detail All questions answered They are comfortable, understanding, agreeable with the plan of care Total Time Total Time Spent Total Time Spent (In Minutes): 50 minutes Discharge Plan Discharge Items Patient Disposition: Home - Self-Care Reason For Visit: CHEST PAIN,ELEVATED TROPONIN Discharge Diagnosis: ANAPLASMOSIS- T[place] BORNE INFECTION; ATRIAL FIBRILLATION Activity: As commented below Activity Comment: RESUME ACTIVITY TOLERATED, NO HEAVY EXERTION, ALWAYS USE ROLLING WALKER Lifting: Wait until after follow-up appointment Exercise/Sports: Wait until after follow-up appointment Non-emergency contact: Primary Care Provider Call non-emergency contact if: you have any medication questions, your symptoms worsen and you have a fever Follow-up/Referrals: Bhanu Wilson DO [[facility]] - Wilberto Houser DO [Primary Care Provider] - Diet: Heart Healthy Addtl Attending Provider Instructions: PLEASE REVIEW YOUR NEW MEDICATION LIST AND FOLLOW INSTRUCTIONS CAREFULLY. TAKE A PROBIOTIC DAILY. DRINK PLENTY OF FLUIDS. ALWAYS ELEVATE YOUR LEGS. FOLLOW UP WITH PRIMARY CARE PHYSICIAN THIS WEEK. THE CLINIC WILL BE CALLING YOU FOR THE APPOINTMENT. FOLLOW UP WITH STORE OPERATIONS ASSOCIATE DR. BHANU WILSON IN 3-4 WEEKS. CONTACT INFORMATION NOTED ABOVE. PLEASE CALL THE CLINIC FOR AN APPOINTMENT. CALL PRIMARY CARE PHYSICIAN OR RETURN TO THE ER IMMEDIATELY IF WITH RECURRENCE OR WORSENING OF SYMPTOMS. Pending Studies at Discharge: Yes Studies:: REPEAT BLOOD WORK: COMPLETE BLOOD COUNT AND BASIC METABOLIC PROFILE C/O PRIMARY CARE PHYSICIAN THIS WEEK. Stand-Alone Forms: Observe Medical, Smoking Cessation Medications and DC Order Prescriptions: New doxycycline hyclate 100 mg Capsule 100 mg PO BID@1000,2200 7 Days Qty: 14 RF: 0 ferrous sulfate 325 mg (65 mg iron) Tablet,Delayed Release (Dr/Ec) 325 mg PO BIDM 30 Days Qty: 60 RF: 0 metoprolol tartrate 25 mg Tablet 12.5 mg PO BID 30 Days Qty: 30 RF: 0 Continued atorvastatin 80 mg tablet 80 mg PO HS RF: 0 cyanocobalamin (vitamin B-12) [Vitamin B-12] 1,000 mcg Tablet 1,000 mcg PO DAILY RF: 0 amlodipine 5 mg tablet 2.5 mg PO DAILY RF: 0 aspirin [Aspir-81] 81 mg Tablet,Delayed Release (Dr/Ec) 81 mg PO DAILY RF: 0 lisinopril 10 mg tablet 10 mg PO DAILY RF: 0 gabapentin 300 mg capsule 300 mg PO HS RF: 0 omega 5-dkd-yuf-fish oil [Fish Oil] 1,000 mg (120 mg-180 mg) Capsule 1,000 cap PO DAILY RF: 0 Discharge Orders: Discharge Order (Routine); Ordered 09/04/19 Ordered By: Jeancarlos Valdovinos Admission Data Admit Date/Time: 08/29/19 19:55 Attending Provider: Jeancarlos Valdovinos Admit Provider: Abram Shaffer Primary Care Provider: Wilberto Houser Other Providers: Cliff Shirley ; Bhanu Wilson ; Sylwia Mckinney ; Clifton Green ; Keyshawn East ; Sal Smith Other Interventions: Discharge Summary Assessment (RN) Last Done: 09/04/19 14:36
[2019-09-04] MEDS ORDERED: FERROUS SULFATE 325 MG TAB PO SCH (17:00)
== END 2019-09-04 16:26 | disposition home health service (06) | DRG 868 ==
LOC: ED 17:01 → SUATTDRO 19:55 → 2S 19:55 → 2E 09-01 13:29